=== PATIENT | male | born 1965 | race Caucasian/White ===

== ENCOUNTER 2018-04-02 15:52 | Inpatient (IN) | payer OTHER ==
[2018-04-02] VITALS (7 sets, daily range): BP systolic 110–150; BP diastolic 59–94; PULSE 64–146; RESP 17–32; TEMP 97.5–98.4; O2SAT 93–100
[~2018-04-02] VITALS: Ht 185.4 cm; Wt 139.6 kg
--- NOTE | 2018-04-02 16:26 | RADRPT ---
EXAM DATE: 04/02/2018 4:18 PM EDT AGE/SEX: 52 years / Male INDICATIONS: Short of breath, sent by the dr. CLINICAL DATA: This is the patient's initial encounter. Patient reports that signs and symptoms have been present for 1 day and indicates a pain score of 0/10. MEDICAL/SURGICAL HISTORY: . atrial fibrillation None. COMPARISON: No prior exams available for comparison. FINDINGS: Frontal and lateral views of the chest demonstrate a normal-sized cardiac silhouette. There are bibas ilar interstitial opacities with likely consolidation at one of the posterior lower lobes. No pleural effusion or pneumothorax is identified. The bones and soft tissues demonstrate no acute finding. CONCLUSION: Abnormal interstitial and airspace opacities bilaterally primarily in the mid and lower lung zones. A lthough nonspecific, the pattern is suggestive of pulmonary edema. Electronically signed by: Ruiz De Paz MD 04/02/2018 4:24 PM EDT
[2018-04-02] MEDS ORDERED: METOPROLOL TARTRATE 50 MG TAB PO ONE (16:45)
[2018-04-02] MEDS ORDERED: METOPROLOL TARTRATE 5 MG/5 ML VIAL IV PUSH ONE ×2 (16:45→19:30)
[2018-04-02 16:55] LABS: AUTOMATED NEUTROPHIL # 4.3 TH/MM3 (1.8-7.7); BASOPHIL # 0.1 TH/MM3 (0-0.2); BASOPHIL % 0.8 % (0.0-2.0); EOSINOPHIL # 0.2 TH/MM3 (0-0.4); EOSINOPHIL % 2.4 % (0.0-4.0); HEMATOCRIT 52.2 % (39.0-51.0); HEMOGLOBIN 17.2 GM/DL (13.0-17.0); LYMPH % 30.2 % (9.0-44.0); LYMPHOCYTE # 2.2 TH/MM3 (1.0-4.8); MEAN CELL VOLUME 88.1 FL (80.0-100.0); MEAN CORPUSCULAR HGB CONC 32.9 % (32.0-36.0); MEAN PLATELET VOLUME 11.2 FL (7.0-11.0); MONO % 8.7 % (0.0-8.0); MONOCYTE # 0.6 TH/MM3 (0-0.9); NEUT % 57.9 % (16.0-70.0); PLATELET COUNT 182 TH/MM3 (150-450); RED BLOOD COUNT 5.93 MIL/MM3 (4.50-5.90); RED CELL DISTRIBUTION WIDTH 13.7 % (11.6-17.2); WHITE BLOOD COUNT 7.4 TH/MM3 (4.0-11.0)
[2018-04-02 17:08] LABS: TROPONIN I 0.02 NG/ML (0.02-0.05)
[2018-04-02] MEDS ORDERED: FUROSEMIDE 40 MG/4 ML VIAL IV PUSH ONE (17:30)
--- NOTE | 2018-04-02 17:31 | RADRPT ---
EXAM DATE: 04/02/2018 5:28 PM EDT AGE/SEX: 52 years / Male INDICATIONS: Short of breath. CLINICAL DATA: This is the patient's initial encounter. Patient reports that signs and symptoms have been present for 1 day and indicates a pain score of 5/10. MEDICAL/SURGICAL HISTORY: None. None. COMPARISON: [facility] [place] & [place], 04/02/2018. . FINDINGS: There is mild haziness to the perivascular structures most likely pulmonary edema. Slight cardiomegaly seen. Focal consolidation is also suspected in right lower lung anteromedial. CONCLUSION: Slight CHF and mild focal consolidation right middle lobe is also suspected. There is no appreciable change. Electronically signed by: Mairsa Luciano MD 04/02/2018 5:30 PM EDT
[2018-04-02 17:33] LABS: INTERNATIONAL NORMALIZED RATIO 1.2 RATIO; PROTHROMBIN TIME - PATIENT 12.3 SEC (9.8-11.6)
[2018-04-02 17:38] LABS: ALT (GPT) 19 U/L (12-78)
[2018-04-02 17:39] LABS: ALBUMIN 3.5 GM/DL (3.4-5.0); AST (GOT) 18 U/L (15-37); BICARBONATE 19.5 MEQ/L (21.0-32.0); BLOOD UREA NITROGEN 15 MG/DL (7-18); CALCIUM 9.3 MG/DL (8.5-10.1); CHLORIDE 111 MEQ/L (98-107); CREATININE 1.29 MG/DL (0.60-1.30); GLOMERULAR FILTRATION RATE 59 ML/MIN (>89); GLUCOSE,RANDOM 76 MG/DL (74-106); MAGNESIUM 1.5 MG/DL (1.5-2.5); SODIUM (NA) 142 MEQ/L (136-145)
[2018-04-02 17:42] LABS: ALKALINE PHOSPHATASE 40 U/L (45-117); TOTAL BILIRUBIN ADULT 0.8 MG/DL (0.2-1.0); TOTAL PROTEIN 7.1 GM/DL (6.4-8.2); TROPONIN I 0.02 NG/ML (0.02-0.05)
--- NOTE | 2018-04-02 17:53 | PD ---
HPI Chief Complaint: Cardiac Complaint Time Seen by Provider: 16:33 Travel History International Travel<30 days: No Contact w/Intl Traveler<30days: No Traveled to known affect area: No History of Present Illness HPI Patient is a 52-year-old male presenting to the emergency department for evaluation of shortness of breath. He went to a new primary care doctor today and was told that he had atrial fibrillation, his rate was elevated he was sent to the emergency department. Patient states that he started feeling short of breath 2 weeks ago prior to moving to the area. He went to his primary doctor there and was given a prescription for albuterol inhaler. He has been using it fairly consistently since it was prescribed. Patient reports a history of paroxysmal atrial fibrillation. Patient is not on any blood thinners, he does take aspirin daily. He reports compliance with metoprolol, he took last dose this morning. Denies any chest pain, fever, chills, headache. Symptom onset was gradual, symptoms possibly exacerbated by the albuterol use. No alleviating factors. PFSH Past Medical History Atrial Fibrillation: Yes High Cholesterol: Yes Influenza Vaccination: Yes Past Surgical History Surgical History: No Previous Surgery Family History Family Breast Cancer: Yes (sister) Family Myocardial Infarction: Yes (father) Family Hypercholesterolemia: Yes Social History Alcohol Use: Yes (occasionally) Tobacco Use: No Substance Use: Yes (marijuana) Allergies-Medications (Allergen,Severity, Reaction): Coded Allergies: Penicillins (Verified Allergy, Intermediate, Rash, 04/02/18) Reported Meds & Prescriptions Reported Meds & Active Scripts Active Reported Naproxen 500 Mg Tab 500 Mg PO BIDPC Fish Oil + D3 (Fish Oil-Cholecalciferol) 1,200-1,000 Mg-Unit Cap 1 Cap PO DAILY Fenofibric Acid Dr (Choline Fenofibrate DR) 135 mg Capdr 135 Mg PO DAILY Atorvastatin (Atorvastatin Calcium) 40 Mg Tab 40 Mg PO DAILY Metoprolol Succinate ER 24 HR (Metoprolol Succinate) 50 Mg Tab 75 Mg PO DAILY Review of Systems Except as stated in HPI: all other systems reviewed are Neg HENT: No: Headaches, Lightheadedness Cardiovascular: Positive: Irregular Rhythm, Tachycardia, Dyspnea on exertion Respiratory: Positive: Shortness of Breath, Orthopnea Gastrointestinal: No: Nausea, Abdominal Pain Neurologic: No: Dizziness, Syncope Physical Exam Narrative GENERAL: Obese, well-developed, alert male. Presenting in no acute distress. SKIN: Warm and dry. HEAD: Atraumatic. Normocephalic. EYES: Pupils equal and round. No scleral icterus. No injection or drainage. ENT: No nasal bleeding or discharge. Mucous membranes pink and moist. NECK: Trachea midline. No JVD. CARDIOVASCULAR: Irregularly irregular, tachycardic. RESPIRATORY: No accessory muscle use. Expiratory wheezes throughout. GASTROINTESTINAL: Abdomen distended, firm. Hepatic and splenic margins not palpable. Nontender, positive bowel sounds. MUSCULOSKELETAL: Extremities without clubbing, cyanosis, or edema. No obvious deformities. NEUROLOGICAL: Awake and alert. No obvious cranial nerve deficits. Motor grossly within normal limits. Five out of 5 muscle strength in the arms and legs. Normal speech. PSYCHIATRIC: Appropriate mood and affect; insight and judgment normal. Data Data Last Documented VS Vital Signs Date Time Temp Pulse Resp B/P (MAP) Pulse Ox O2 Delivery O2 Flow Rate FiO2 04/02/18 19:58 120 20 110/68 (82) 95 Nasal Cannula 2.00 04/02/18 17:31 97.5 50 Orders Orders Electrocardiogram (04/02/18 15:56) Complete Blood Count With Diff (04/02/18 15:56) Ckmb (Isoenzyme) Profile (04/02/18 15:56) Troponin I (04/02/18 15:56) Chest, Pa & Lat (04/02/18 15:56) Comprehensive Metabolic Panel (04/02/18 16:34) B-Type Natriuretic Peptide (04/02/18 16:34) Act Partial Throm Time (Ptt) (04/02/18 16:34) Prothrombin Time / Inr (Pt) (04/02/18 16:34) Magnesium (Mg) (04/02/18 16:34) Ckmb (Isoenzyme) Profile (04/02/18 16:34) Troponin I (04/02/18 16:34) Iv Access Insert/Monitor (04/02/18 16:34) Ecg Monitoring (04/02/18 16:34) Oximetry (04/02/18 16:34) Oxygen Administration (04/02/18 16:34) Chest, Single Ap (04/02/18 16:34) Metoprolol Tartrate Inj (Lopressor Inj) (04/02/18 16:45) Metoprolol Tartrate (Lopressor) (04/02/18 16:45) CKMB (04/02/18 16:30) CKMB% (04/02/18 16:30) Furosemide Inj (Lasix Inj) (04/02/18 17:30) Ct Pulmonary Angiogram (04/02/18 ) Iohexol 350 Inj (Omnipaque 350 Inj) (04/02/18 18:33) Metoprolol Tartrate Inj (Lopressor Inj) (04/02/18 19:30) Admit Order (Ed Use Only) (04/02/18 19:46) Labs Laboratory Tests Test 04/02/18 16:30 04/02/18 16:45 White Blood Count 7.4 TH/MM3 Red Blood Count 5.93 MIL/MM3 Hemoglobin 17.2 GM/DL Hematocrit 52.2 % Mean Corpuscular Volume 88.1 FL Mean Corpuscular Hemoglobin 29.0 PG Mean Corpuscular Hemoglobin Concent 32.9 % Red Cell Distribution Width 13.7 % Platelet Count 182 TH/MM3 Mean Platelet Volume 11.2 FL Neutrophils (%) (Auto) 57.9 % Lymphocytes (%) (Auto) 30.2 % Monocytes (%) (Auto) 8.7 % Eosinophils (%) (Auto) 2.4 % Basophils (%) (Auto) 0.8 % Neutrophils # (Auto) 4.3 TH/MM3 Lymphocytes # (Auto) 2.2 TH/MM3 Monocytes # (Auto) 0.6 TH/MM3 Eosinophils # (Auto) 0.2 TH/MM3 Basophils # (Auto) 0.1 TH/MM3 CBC Comment AUTO DIFF Differential Comment AUTO DIFF CONFIRMED Platelet Estimate NORMAL Platelet Morphology Comment NORMAL Total Creatine Kinase 111 U/L 122 U/L Creatine Kinase MB 2.4 NG/ML Troponin I 0.02 NG/ML 0.02 NG/ML Prothrombin Time 12.3 SEC Prothromb Time International Ratio 1.2 RATIO Activated Partial Thromboplast Time 26.5 SEC Blood Urea Nitrogen 15 MG/DL Creatinine 1.29 MG/DL Random Glucose 76 MG/DL Total Protein 7.1 GM/DL Albumin 3.5 GM/DL Calcium Level 9.3 MG/DL Magnesium Level 1.5 MG/DL Alkaline Phosphatase 40 U/L Aspartate Amino Transf (AST/SGOT) 18 U/L Alanine Aminotransferase (ALT/SGPT) 19 U/L Total Bilirubin 0.8 MG/DL Sodium Level 142 MEQ/L Potassium Level 4.1 MEQ/L Chloride Level 111 MEQ/L Carbon Dioxide Level 19.5 MEQ/L Anion Gap 12 MEQ/L Estimat Glomerular Filtration Rate 59 ML/MIN B-Type Natriuretic Peptide 389 PG/ML MDM Medical Decision Making Medical Screen Exam Complete: Yes Emergency Medical Condition: Yes Interpretation(s) Vital Signs Date Time Temp Pulse Resp B/P (MAP) Pulse Ox O2 Delivery O2 Flow Rate FiO2 04/02/18 17:31 97.5 64 17 117/59 (78) 100 Ventilator 50 04/02/18 16:39 146 32 93 04/02/18 16:21 97.9 128 22 129/94 (106) 94 Room Air Differential Diagnosis Cardiac arrhythmia versus CHF versus metabolic abnormality versus other Narrative Course Patient is a 52-year-old male presenting to emerge department for evaluation of shortness of breath secondary to A. fib with RVR. Patient's initial rate was in the 130s. He was slightly tachypneic and had audible wheezing on exam. IV access established, patient placed on telemetry monitoring continuous pulse oximetry. Patient was administered 2.5 mg of Lopressor IV with an additional 50 mg oral dose. Initial EKG was performed in triage showed A. fib with RVR with a rate of 128. This was reviewed by an attending physician. Chest x-ray shows abnormal interstitial and airspace opacities bilaterally primarily in the mid and lower lung zones. Although nonspecific the pattern is suggestive of pulmonary edema. It also showed mild focal consolidation in the right middle lobe. CBC is unremarkable BNP is 389 Cardiac enzymes are negative 1 set Chemistry is unremarkable Patient was given 40 mg of Lasix IV 1 dose Last set of vital signs his heart rate had trended down from 146->64, his blood pressure remained stable. Discussed findings with my attending physician. Patient will be admitted CHF, A. fib with RVR, pneumonia. Patient was given additional dose of Lopressor 2.5 mg IV as his heart rate trended up. Dr. Alexander accepted admit, admit orders placed. Diagnosis Primary Impression: CHF (congestive heart failure) Qualified Codes: I50.9 - Heart failure, unspecified Additional Impressions: Atrial fibrillation with RVR Pneumonia Qualified Codes: J18.9 - Pneumonia, unspecified organism Admitting Information Admitting Physician Requests: Admit Condition: Stable Estefany Thomason [facility] Apr 02, 2018 17:53
[2018-04-02] MEDS ORDERED: METO1TAB9 PO (17:59)
[2018-04-02] MEDS ORDERED: NAPR500T2 PO (17:59)
[2018-04-02] MEDS ORDERED: ATOR40TA16 PO (17:59)
[2018-04-02] MEDS ORDERED: FISHCAP4 PO (17:59)
[2018-04-02] MEDS ORDERED: CHOL1CAP2 PO (17:59)
[2018-04-02] MEDS ORDERED: IOHEXOL 350 MG/ML 10 ML VIAL (for RAD DIAG) IVCONTRAST ONE (18:33)
--- NOTE | 2018-04-02 18:49 | RADRPT ---
EXAM DATE: 04/02/2018 6:38 PM EDT AGE/SEX: 52 years / Male INDICATIONS: Chest pain. CLINICAL DATA: This is the patient's initial encounter. Patient reports that signs and symptoms have been present for 1 day and indicates a pain score of 5/10. MEDICAL/SURGICAL HISTORY: . Afib. RVR. . RADIATION DOSE: 23.41 CTDI (mGy) COMPARISON: No prior exams available for comparison. TECHNIQUE: Volumetric scanning was performed using a multi-row detector CT scanner during bolus infu dayana of 75 ml Omnipaque 350 (iohexol) nonionic water-soluble contrast as a single exam dose. The anabelle a was post processed with a variety of visualization algorithms including full volume maximum intensi ty projection and sliding thin slab reformation. Using automated exposure control and adjustment of the mA and/or kV according to patient size, radiation dose was kept as low as reasonably achievable t o obtain optimal diagnostic quality images. FINDINGS: There is respiratory motion artifact. Pulmonary Arteries: Evaluation for PE is significantly degraded by the respiratory motion artifact. No definite PE is identified in the lobar and some of the segmental branches. More distal PE cannot b e confidently excluded on this examination. Lung: There is severe respiratory motion artifact limiting detailed evaluation of the lung parenchym a. There is likely mild groundglass opacity bilaterally consolidation and atelectasis in both lower l obes. Effusion: There are small to moderate-sized bilateral pleural effusions. Mediastinum: Heart and great vessels demonstrate no acute finding. There is coronary artery calcific ation. No lymphadenopathy is seen. Other: No axillary lymphadenopathy is present. There are mild degenerative changes of the thoracic s pine. Contrast refluxes into the hepatic veins and IVC. CONCLUSION: 1. Examination is significantly degraded by respiratory motion artifact. No PE is identified through the lobar and some of the segmental level pulmonary arteries. More distal PE cannot be confidently e xcluded based on this examination. 2. There are interstitial opacities and groundglass opacity bilaterally, greater in the lower lung z ones in a pattern suggesting pulmonary edema. Small to moderate-sized bilateral pleural effusions are present. Electronically signed by: Ruiz De Paz MD 04/02/2018 6:47 PM EDT
[2018-04-02] MEDS ORDERED: LEVOFLOXACIN 750 MG PREMIX INJ 150 ML IV ONE (20:15)
[2018-04-02] MEDS ORDERED: SODIUM CHLORIDE 0.9% FLUSH 10 ML FLUSH IV FLUSH PRN (20:45)
[2018-04-02] MEDS ORDERED: METOPROLOL TARTRATE 25 MG TAB PO SCH (21:00)
--- NOTE | 2018-04-02 21:15 | HHI.HP ---
HPI Service [facility] Primary Care Physician Elisa Toscano MD Admission Diagnosis AFIB W/ RVR, CHF, PNA Diagnoses: Travel History International Travel<30 Days: No Contact w/Intl Traveler <30 Da: No Traveled to Known Affected Are: No History of Present Illness 52-year-old male with a past medical history significant for paroxysmal atrial fibrillation (patient previously refused anticoagulation) and hyperlipidemia presents the emergency department for evaluation of shortness of breath 1 week and heart palpitations. The patient denies any chest pain. He reports that he was seen by his primary care physician in [place] approximately 1 week ago who gave him an albuterol inhaler and recommended steroids however the patient refused steroids. He was not given any antibiotics at this time. He states that since he has been using the albuterol he feels as though his shortness of breath and palpitations are worsening. The patient denies any abdominal pain. No nausea/vomiting/diarrhea. No cough. No fevers/chills. No lateralizing signs/symptoms. Review of Systems Except as stated in HPI: all other systems reviewed are Neg Past Family Social History Past Medical History Paroxysmal atrial fibrillation (patient refused anticoagulation in the past) requiring cardioversion Hyperlipidemia Past Surgical History None Reported Medications Reported Meds & Active Scripts Active Reported Naproxen 500 Mg Tab 500 Mg PO BIDPC Fish Oil + D3 (Fish Oil-Cholecalciferol) 1,200-1,000 Mg-Unit Cap 1 Cap PO DAILY Fenofibric Acid Dr (Choline Fenofibrate DR) 135 mg Capdr 135 Mg PO DAILY Atorvastatin (Atorvastatin Calcium) 40 Mg Tab 40 Mg PO DAILY Metoprolol Succinate ER 24 HR (Metoprolol Succinate) 50 Mg Tab 75 Mg PO DAILY Allergies: Coded Allergies: Penicillins (Verified Allergy, Intermediate, Rash, 04/02/18) Family History Father with CAD Social History Quit tobacco 4 days ago. Occasional alcohol. Positive marijuana. Denies all other illicit drugs. Physical Exam Vital Signs Vital Signs Date Time Temp Pulse Resp B/P (MAP) Pulse Ox O2 Delivery O2 Flow Rate FiO2 04/02/18 20:30 93 18 129/84 (99) 94 Nasal Cannula 2.00 04/02/18 19:58 120 20 110/68 (82) 95 Nasal Cannula 2.00 04/02/18 19:12 120 20 114/83 (93) 93 Room Air 04/02/18 17:31 97.5 64 17 117/59 (78) 100 Ventilator 50 04/02/18 16:39 146 32 93 04/02/18 16:21 97.9 128 22 129/94 (106) 94 Room Air Physical Exam GENERAL: Obese, male sitting up in bed SKIN: No rashes, ecchymoses or lesions. Cool and dry. HEAD: Atraumatic. Normocephalic. No temporal or scalp tenderness. EYES: Pupils equal round and reactive. Extraocular motions intact. No scleral icterus. No injection or drainage. ENT: Nose without bleeding, purulent drainage or septal hematoma. Throat without erythema, tonsillar hypertrophy or exudate. Uvula midline. Airway patent. NECK: Trachea midline. No JVD or lymphadenopathy. Supple, nontender, no meningeal signs. CARDIOVASCULAR: Tachycardic. Irregularly irregular rhythm without murmurs, gallops, or rubs. RESPIRATORY: Clear to auscultation. Breath sounds equal bilaterally. No wheezes , rales, or rhonchi. GASTROINTESTINAL: Abdomen soft, non-tender, nondistended. No hepato-splenomegaly , or palpable masses. No guarding. MUSCULOSKELETAL: Extremities without clubbing, cyanosis, or edema. No joint tenderness, effusion, or edema noted. No calf tenderness. NEUROLOGICAL: Awake and alert. Cranial nerves II through XII intact. Motor and sensory grossly within normal limits. Normal speech. Laboratory Laboratory Tests Test 04/02/18 16:30 04/02/18 16:45 White Blood Count 7.4 Red Blood Count 5.93 Hemoglobin 17.2 Hematocrit 52.2 Mean Corpuscular Volume 88.1 Mean Corpuscular Hemoglobin 29.0 Mean Corpuscular Hemoglobin Concent 32.9 Red Cell Distribution Width 13.7 Platelet Count 182 Mean Platelet Volume 11.2 Neutrophils (%) (Auto) 57.9 Lymphocytes (%) (Auto) 30.2 Monocytes (%) (Auto) 8.7 Eosinophils (%) (Auto) 2.4 Basophils (%) (Auto) 0.8 Neutrophils # (Auto) 4.3 Lymphocytes # (Auto) 2.2 Monocytes # (Auto) 0.6 Eosinophils # (Auto) 0.2 Basophils # (Auto) 0.1 CBC Comment AUTO DIFF Differential Comment AUTO DIFF CONFIRMED Platelet Estimate NORMAL Platelet Morphology Comment NORMAL Total Creatine Kinase 111 122 Creatine Kinase MB 2.4 Troponin I 0.02 0.02 Prothrombin Time 12.3 Prothromb Time International Ratio 1.2 Activated Partial Thromboplast Time 26.5 Blood Urea Nitrogen 15 Creatinine 1.29 Random Glucose 76 Total Protein 7.1 Albumin 3.5 Calcium Level 9.3 Magnesium Level 1.5 Alkaline Phosphatase 40 Aspartate Amino Transf (AST/SGOT) 18 Alanine Aminotransferase (ALT/SGPT) 19 Total Bilirubin 0.8 Sodium Level 142 Potassium Level 4.1 Chloride Level 111 Carbon Dioxide Level 19.5 Anion Gap 12 Estimat Glomerular Filtration Rate 59 B-Type Natriuretic Peptide 389 Result Diagram: 04/02/18 1630 04/02/18 1645 Caprini VTE Risk Assessment Caprini VTE Risk Assessment: Mod/High Risk (score >= 2) Caprini Risk Assessment Model Point Value = 1 Point Value = 2 Point Value = 3 Point Value = 5 Age 41-60 Minor surgery BMI > 25 kg/m2 Swollen legs Varicose veins or History of unexplained or recurrent spontaneous Oral contraceptives or hormone replacement Sepsis (< 1 month) Serious lung disease, including pneumonia (< 1 month) Abnormal pulmonary function Acute myocardial infarction Congestive heart failure (< 1 month) History of inflammatory bowel disease Medical patient at bed rest Age 61-74 Arthroscopic surgery Major open surgery (> 45 min) Laparoscopic surgery (> 45 min) Malignancy Confined to bed (> 72 hours) Immobilizing plaster cast Central venous access Age >= 75 History of VTE Family history of VTE Factor V Leiden Prothrombin [id number] Lupus anticoagulant Anticardiolipin antibodies Elevated serum homocysteine Heparin-induced thrombocytopenia Other congenital or acquired thrombophilia Stroke (< 1 month) Elective arthroplasty Hip, pelvis, or leg fracture Acute spinal cord injury (< 1 month) Prophylaxis Regimen Total Risk Factor Score Risk Level Prophylaxis Regimen 0-1 Low Early ambulation 2 Moderate Order ONE of the following: *Sequential Compression Device (SCD) *Heparin 5000 units SQ BID 3-4 Higher Order ONE of the following medications: *Heparin 5000 units SQ TID *Enoxaparin/Lovenox 40 mg SQ daily (WT < 150 kg, CrCl > 30 mL/min) *Enoxaparin/Lovenox 30 mg SQ daily (WT < 150 kg, CrCl > 10-29 mL/min) *Enoxaparin/Lovenox 30 mg SQ BID (WT < 150 kg, CrCl > 30 mL/min) AND/OR *Sequential Compression Device (SCD) 5 or more Highest Order ONE of the following medications: *Heparin 5000 units SQ TID (Preferred with Epidurals) *Enoxaparin/Lovenox 40 mg SQ daily (WT < 150 kg, CrCl > 30 mL/min) *Enoxaparin/Lovenox 30 mg SQ daily (WT < 150 kg, CrCl > 10-29 mL/min) *Enoxaparin/Lovenox 30 mg SQ BID (WT < 150 kg, CrCl > 30 mL/min) AND *Sequential Compression Device (SCD) Assessment and Plan Assessment and Plan Assessment/plan: 1. Atrial fibrillation with rapid ventricular response EKG significant for A. fib with RVR, no ST segment elevation or depression, personally reviewed Patient with history of paroxysmal atrial fibrillation, previously refused anticoagulation IV metoprolol Continue home p.o. metoprolol Start anticoagulation with Eliquis If rate is not controlled, will start amiodarone drip Patient will follow up with his primary care provider on Friday and establish with a punch finisher at that time 2. Community-acquired pneumonia Chest x-ray significant for mild focal consolidation in the right middle lobe, personally reviewed Rocephin/azithromycin 3. Hyperlipidemia Continue home statin FEN Heart healthy diet Electrolytes: Monitor and replete as needed Shelli Phillips MD Apr 02, 2018 21:15
[2018-04-02] MEDS: SODIUM CHLORIDE 0.9% FLUSH 10 ML FLUSH IV FLUSH SCH (23:09)
[2018-04-02] MEDS: APIXABAN 5 MG TABLET PO SCH (23:09)
[2018-04-02] MEDS: cefTRIAXone INJ 1,000 MG in SODIUM CHLORIDE 0.9% INJ 100 ML IV SCH (23:09)
[2018-04-02] MEDS: AZITHROMYCIN INJ 500 MG in SODIUM CHLOR 0.9% 250 ML INJ 250 ML IV SCH (23:57)
[2018-04-03] VITALS (9 sets, daily range): BP systolic 114–178; BP diastolic 85–97; PULSE 85–126; RESP 16–20; TEMP 97.4–98.5; O2SAT 91–100
[2018-04-03 04:19] LABS: HEMATOCRIT 52.8 % (39.0-51.0); HEMOGLOBIN 17.4 GM/DL (13.0-17.0); MEAN CORPUSCULAR HEMOGLOBIN 29.1 PG (27.0-34.0); MEAN PLATELET VOLUME 10.9 FL (7.0-11.0); PLATELET COUNT 195 TH/MM3 (150-450); RED CELL DISTRIBUTION WIDTH 13.6 % (11.6-17.2); WHITE BLOOD COUNT 8.7 TH/MM3 (4.0-11.0)
[2018-04-03 05:07] LABS: BICARBONATE 21.6 MEQ/L (21.0-32.0); CREATININE 1.55 MG/DL (0.60-1.30)
[2018-04-03] MEDS ORDERED: METOPROLOL SUCCINATE 25 MG EXTENDED RELEASE TAB PO SCH (09:00)
[2018-04-03] MEDS: APIXABAN 5 MG TABLET PO SCH ×2 (09:27→21:33)
[2018-04-03] MEDS: SODIUM CHLORIDE 0.9% FLUSH 10 ML FLUSH IV FLUSH SCH ×2 (09:28→21:33)
[2018-04-03] MEDS: ATORVASTATIN 40 MG TAB PO SCH (09:28)
--- NOTE | 2018-04-03 11:31 | HHI.PR ---
Subjective Remarks Follow-up dyspnea, atrial fibrillation. The patient still has rapid heart rate. Still short of breath. Has not been out of bed ambulating yet today. Objective Vitals Vital Signs Date Time Temp Pulse Resp B/P (MAP) Pulse Ox O2 Delivery O2 Flow Rate FiO2 04/03/18 11:12 97.5 115 20 141/91 (108) 93 04/03/18 09:30 94 04/03/18 07:43 97.8 85 16 114/89 (97) 91 04/03/18 04:33 98.5 126 17 137/85 (102) 93 04/03/18 04:00 104 04/03/18 01:01 100 40 04/02/18 21:26 98.4 114 17 150/81 (104) 96 04/02/18 21:15 04/02/18 20:30 93 18 129/84 (99) 94 Nasal Cannula 2.00 04/02/18 19:58 120 20 110/68 (82) 95 Nasal Cannula 2.00 04/02/18 19:12 120 20 114/83 (93) 93 Room Air 04/02/18 17:31 97.5 64 17 117/59 (78) 100 Ventilator 50 04/02/18 16:39 146 32 93 04/02/18 16:21 97.9 128 22 129/94 (106) 94 Room Air I/O 04/02/18 04/02/18 04/02/18 04/03/18 04/03/18 04/03/18 07:00 15:00 23:00 07:00 15:00 23:00 Intake Total 150 ml 1240 ml Output Total 825 ml Balance 150 ml 415 ml Intake Oral 1240 ml IV Total 150 ml Output Urine Total 825 ml # Voids 2 Result Diagram: 04/03/18 0332 04/03/18 0332 Imaging Last Impressions Chest X-Ray 04/02/18 1634 Signed Impressions: CONCLUSION: Slight CHF and mild focal consolidation right middle lobe is also s uspected. There is no appreciable change. CT Angiography 04/02/18 0000 Signed Impressions: CONCLUSION: 1. Examination is significantly degraded by respiratory motion artifact. No PE is identified through the lobar and some of the segmental level pulmonary marco eddy. More distal PE cannot be confidently excluded based on this examination. 2. There are interstitial opacities and groundglass opacity bilaterally, great er in the lower lung zones in a pattern suggesting pulmonary edema. Small to mo derate-sized bilateral pleural effusions are present. Objective Remarks General: No acute distress. Heart: Irregular rhythm with rapid rate. No murmur. Lungs: Crackles in both bases, left greater than right. Breathing is nonlabored. Abdomen: Soft, nontender, nondistended. Extremities: Trace bilateral lower extremity edema. Psych: Alert and oriented. Neuro: Normal speech. No focal deficits noted. Procedures None Urinary Catheter: No Vascular Central Line Catheter: No A/P Assessment and Plan 1. Atrial fibrillation with RVR: Heart rate around 100. Continue metoprolol. Anticoagulation with Eliquis. Consult cardiology. Check 2D echocardiogram. 2. Community-acquired pneumonia: New antibiotics. Supplemental oxygen as needed. 3. Hyperlipidemia: Continue statin. 4. ?CHF: Check echocardiogram. Patient has some lower extremity swelling and chest x-ray consistent with pulmonary edema. Received Lasix 1 dose in the ER. 5. Acute kidney injury: Secondary to diuresis. Monitor labs. Will need to use caution with IV fluids due to possible fluid overload, possible CHF. 6. DVT prophylaxis: Eliquis. Discharge Planning Pending further workup and further clinical improvement. Danis Lee MD Apr 03, 2018 11:31
[2018-04-03] MEDS ORDERED: METOPROLOL SUCCINATE 25 MG EXTENDED RELEASE TAB PO ONE (13:30)
--- NOTE | 2018-04-03 14:18 | MB ---
cc: Darrel Zimmerman DO DATE: 04/03/2018 REASON FOR CONSULTATION: Atrial fibrillation with rapid ventricular response, acute congestive heart failure. HISTORY OF PRESENT ILLNESS: Jabari Davis is a pleasant 52-year-old male who presented to [facility] due to shortness of breath. He states that for about the past week he has been short of breath and had heart palpitations. The palpitations seem to come and go. His shortness of breath is at any time that he is doing any type of activity or specifically when he is lying down flat. He has also had some mild chest pain, which he did not really admit to with the other physicians, but states that he gets a pressure and this appears to come on when he is lying down flat and short of breath. He saw his new primary care physician, Dr. Elisa Toscano, and was sent to the emergency room due to the atrial fibrillation and shortness of breath. In seeing him, he is doing somewhat better than when he was admitted. PAST MEDICAL HISTORY: He states that he had a previous episode of atrial fibrillation in 2013 when he was in [place] and at that time they cardioverted him and started him on an anticoagulant, but he stopped that due to mccoy. PAST MEDICAL HISTORY: 1. Paroxysmal atrial fibrillation with a CHADS-VASc score of probably 2 (congestive heart failure, does not carry a diagnosis of hypertension, but has had blood pressures as high as 150/80 here). 2. Hyperlipidemia. 3. Tobacco abuse. 4. Marijuana use. PAST SURGICAL HISTORY: Denies. ALLERGIES: PENICILLIN. MEDICATIONS: 1. Fenofibric acid 135 mg daily. 2. Lipitor 40 mg daily. 3. Fish oil 1 cap daily. 4. Toprol-XL 75 mg daily. 5. Naproxen 500 mg b.i.d. FAMILY HISTORY: Denies premature coronary artery disease or sudden cardiac within the family. SOCIAL HISTORY: The patient previously smoked but quit upon admission to the hospital. He occasionally drinks alcohol. He does smoke marijuana, but denies all other illicit drugs. REVIEW OF SYSTEMS: Fourteen systems were reviewed including osteopathic. Pertinent positives and negatives as above, otherwise negative. PHYSICAL EXAMINATION: VITAL SIGNS: Temperature 97.5, heart rate 115, blood pressure 141/91, respirations 20, pulse oximetry 93% on 2 liters. GENERAL: The patient appears well, in no acute distress, alert, awake and oriented x3. HEENT: Extraocular muscles intact. Mucous membranes moist. NECK: Supple. No JVD at 45 degrees. No carotid bruits heard bilaterally. Carotid upstroke is brisk in nature. CARDIOVASCULAR: Heart is irregularly irregular and tachycardic. Positive first and second heart sounds with no noted murmurs, gallops or rubs. LUNGS: Decreased breath sounds bilaterally, but no overt wheezes, rales or rhonchi. ABDOMEN: Soft, nontender, nondistended. No organomegaly noted. EXTREMITIES: Trace edema bilaterally. NEUROLOGIC: No focal deficits. SKIN: Warm, dry and intact. OSTEOPATHIC: No kyphoscoliosis, lordosis or paraspinal tender points. LABORATORY DATA: Hemoglobin 17.4, hematocrit 52.8, platelets 195. Potassium 4.5, BUN 20, creatinine 1.55. Troponin negative x2. BNP 389. TSH 2.46. ELECTROCARDIOGRAM (04/02/2018 16:02): Atrial fibrillation with rapid ventricular response, nonspecific ST-T wave changes. IMPRESSIONS: 1. Paroxysmal atrial fibrillation with rapid ventricular response (CHADS-VASc score equals 2). 2. New onset acute decompensated congestive heart failure, unknown whether systolic or diastolic in nature. 3. Obesity with a body mass index of 41.6. 4. Atypical chest pain. 5. Tobacco abuse. 6. Marijuana use. 7. Obstructive sleep apnea on continuous positive airway pressure. RECOMMENDATIONS: 1. Mr. Davis presented with atrial fibrillation with rapid ventricular response. He was previously on Toprol-XL and we will try to use beta blockers to further control this. Would attempt to avoid calcium channel blockers until we know his overall ejection fraction. 2. As far as his acute decompensated heart failure, it is not known whether this is systolic or diastolic at this time. We will check a 2-D echo to look at his overall left ventricular function, cardiac structure and possible valvulopathies. If it is systolic in nature, it may be due to ischemia versus tachyarrhythmia. If diastolic, more than likely his heart failure is due to his tachyarrhythmia. 3. Due to the chest pain, new onset heart failure as well as the atrial fibrillation, I discussed with him and I believe that he should undergo pharmacologic nuclear stress testing. We will plan on doing this over the next 2 days. 4. He should continue on his CPAP for his obstructive sleep apnea. 5. His has looked up with her insurance and Eliquis relatively affordable for them and so he is okay with being placed on this due to his CHADS-VASc score of 2. 6. We will also attempt to diurese him gently as he did have a bump in his kidney function today. 7. Overall, he should attempt to decrease his NSAID use as this can potentiate hypertension and overall not well tolerated in patients with heart failure. 8. I spoke to him for greater than 3 minutes about tobacco cessation. Thank you for allowing me to see Jabari Davis. If there are any questions, please do not hesitate to call. Darrel Zimmerman DO VGP/SB , 01:32 PM , 02:16 PM
--- NOTE | 2018-04-03 15:22 | EKG ---
Date Performed: 04/02/2018 Time Performed: 16:02:00 PTAGE: 52 years EKG: ATRIAL FIBRILLATION WITH RAPID VENTRICULAR RESPONSE NONSPECIFIC T-WAVE ABNORMALITY ABNORMAL RHYTHM ECG INTERPRETATION BASED ON A DEFAULT AGE OF 40 YEARS NO PREVIOUS TRACING DOCTOR: Fernando Winkler Interpretating Date/Time 04/03/2018 15:21:43
[2018-04-03] MEDS: cefTRIAXone INJ 1,000 MG in SODIUM CHLORIDE 0.9% INJ 100 ML IV SCH (21:33)
[2018-04-03] MEDS: AZITHROMYCIN INJ 500 MG in SODIUM CHLOR 0.9% 250 ML INJ 250 ML IV SCH (23:00)
[2018-04-04] VITALS (8 sets, daily range): BP systolic 114–139; BP diastolic 76–106; PULSE 86–131; RESP 18–20; TEMP 97.3–98; O2SAT 93–96
[2018-04-04] MEDS ORDERED: FUROSEMIDE 20 MG/2 ML VIAL IV PUSH SCH (09:00)
[2018-04-04] MEDS ORDERED: METOPROLOL SUCCINATE 50 MG EXTENDED RELEASE TAB PO SCH (09:00)
[2018-04-04] MEDS: ATORVASTATIN 40 MG TAB PO SCH (10:00)
[2018-04-04] MEDS: POTASSIUM CHLORIDE 10 MEQ CONTROLLED RELEASE TAB PO SCH (10:00)
[2018-04-04] MEDS: APIXABAN 5 MG TABLET PO SCH ×2 (10:01→21:59)
[2018-04-04] MEDS: SODIUM CHLORIDE 0.9% FLUSH 10 ML FLUSH IV FLUSH SCH ×2 (10:01→22:01)
--- NOTE | 2018-04-04 10:20 | HHI.PR ---
Subjective Remarks Follow-up A. fib with RVR/CHF of unknown type/obstructive sleep apnea April 04, 2018-patient seen and examined; patient currently n.p.o. pending nuclear stress test today. Complains of shortness of breath with mild chest pain with exertion. by the bedside. Objective Vitals Vital Signs Date Time Temp Pulse Resp B/P (MAP) Pulse Ox O2 Delivery O2 Flow Rate FiO2 04/04/18 08:00 97.6 98 18 134/76 (95) 93 04/04/18 04:00 98 04/04/18 04:00 97.8 86 20 139/86 (103) 95 04/04/18 00:00 118 04/03/18 22:30 Room Air 04/03/18 22:12 97.8 120 20 178/97 (124) 94 04/03/18 21:06 98.1 102 20 145/92 (109) 93 04/03/18 16:38 97.4 108 20 141/95 (110) 91 04/03/18 11:12 97.5 115 20 141/91 (108) 93 I/O 04/03/18 04/03/18 04/03/18 04/04/18 04/04/18 04/04/18 07:00 15:00 23:00 07:00 15:00 23:00 Intake Total 1240 ml 240 ml 490 ml Output Total 825 ml 300 ml Balance 415 ml -60 ml 490 ml Intake Oral 1240 ml 240 ml 240 ml IV Total 250 ml Output Urine Total 825 ml 300 ml # Voids 2 1 # Bowel Movements 1 Result Diagram: 04/03/18 0332 04/03/18 0332 Imaging Last Impressions Chest X-Ray 04/02/18 1634 Signed Impressions: CONCLUSION: Slight CHF and mild focal consolidation right middle lobe is also s uspected. There is no appreciable change. CT Angiography 04/02/18 0000 Signed Impressions: CONCLUSION: 1. Examination is significantly degraded by respiratory motion artifact. No PE is identified through the lobar and some of the segmental level pulmonary marco eddy. More distal PE cannot be confidently excluded based on this examination. 2. There are interstitial opacities and groundglass opacity bilaterally, great er in the lower lung zones in a pattern suggesting pulmonary edema. Small to mo derate-sized bilateral pleural effusions are present. Objective Remarks GENERAL: NAD SKIN: Warm and dry. HEAD: Normocephalic. EYES: No scleral icterus. No injection or drainage. NECK: Supple, trachea midline. No JVD or lymphadenopathy. CARDIOVASCULAR: Irregular regular rate and rhythm without murmurs, gallops, or rubs. RESPIRATORY: Breath sounds equal bilaterally. No accessory muscle use. GASTROINTESTINAL: Abdomen soft, non-tender, nondistended. MUSCULOSKELETAL: No cyanosis, or edema. BACK: Nontender without obvious deformity. No CVA tenderness. Procedures None A/P Problem List: (1) Atrial fibrillation with RVR ICD Code: I48.91 - Unspecified atrial fibrillation Status: Acute Assessment and Plan 52-year-old man with 1. Atrial fibrillation with RVR: Appreciate input from cardiology pending nuclear stress test today April 04, 2018 continue metoprolol. Anticoagulation with Eliquis 2D echocardiogram pending. 2. Community-acquired pneumonia Currently on azithromycin and Rocephin supplemental oxygen as needed. 3. Hyperlipidemia Continue statin. 4. ?CHF 2D echocardiogram pending. Continue with Lasix Plan for nuclear stress test today April 04, 2018 5. Acute kidney injury: Secondary to diuresis. Monitor BUN and creatinine, and avoid all nephrotoxic drug 6. Obstructive sleep apnea Continue with BiPAP at night Tobacco cessation strongly advised 7. DVT prophylaxis: Eliquis. Maurizio Hernández MD Apr 04, 2018 10:20
[2018-04-04] MEDS ORDERED: ACETAMINOPHEN 325 MG TAB PO PRN (10:30)
[2018-04-04] MEDS ORDERED: DOCUSATE SODIUM 50 MG/SENNA 8.6 MG TAB PO PRN (10:30)
[2018-04-04] MEDS ORDERED: ONDANSETRON ODT 4 MG TAB PO PRN (10:45)
[2018-04-04] MEDS ORDERED: REGADENOSON INJ 0.4 MG/5 ML SYR ONE (13:01)
[2018-04-04 16:16] LABS: BICARBONATE 23.8 MEQ/L (21.0-32.0); CALCIUM 9.1 MG/DL (8.5-10.1); CREATININE 1.43 MG/DL (0.60-1.30)
[2018-04-04] MEDS ORDERED: FUROSEMIDE 20 MG/2 ML VIAL IV PUSH ONE (17:00)
--- NOTE | 2018-04-04 17:04 | PD.CARD.PN ---
Subjective Subjective Remarks No events overnight SOB with walking, some chest pressure when laying flat Heart rates 100-115 Objective Medications Current Medications Medications (Trade) Dose Ordered Sig/Nichelle Route Start Time Stop Time Status Last Admin (NS Flush) 2 ml UNSCH PRN IV FLUSH 04/02/18 20:45 (NS Flush) 2 ml BID IV FLUSH 04/02/18 21:00 04/04/18 10:01 (Eliquis) 5 mg BID PO 04/02/18 21:00 04/04/18 10:01 (Lipitor) 40 mg DAILY PO 04/03/18 09:00 04/04/18 10:00 Azithromycin 500 mg/Sodium Chloride 250 ml @ 250 mls/hr Q24H IV 04/02/18 23:00 04/03/18 23:00 Ceftriaxone Sodium 1000 mg/ Sodium Chloride 100 ml @ 200 mls/hr Q24H IV 04/02/18 22:00 04/03/18 21:33 (Lasix Inj) 20 mg DAILY IV PUSH 04/04/18 09:00 (KCl) 10 meq DAILY PO 04/04/18 09:00 04/04/18 10:00 (Toprol Xl) 100 mg DAILY PO 04/04/18 09:00 04/04/18 10:01 (Tylenol) 650 mg Q4H PRN PO 04/04/18 10:30 (Zofran Odt) 4 mg Q6H PRN PO 04/04/18 10:45 (Mimi-Colace) 1 tab BID PRN PO 04/04/18 10:30 (Restoril) 15 mg HS PRN PO 04/04/18 10:30 Vital Signs / I&O Vital Signs Date Time Temp Pulse Resp B/P (MAP) Pulse Ox O2 Delivery O2 Flow Rate FiO2 04/04/18 16:00 98.0 110 18 130/98 (109) 96 04/04/18 12:00 97.5 105 18 133/106 (115) 93 04/04/18 08:00 97.6 98 18 134/76 (95) 93 04/04/18 08:00 Room Air 2.00 40 04/04/18 04:00 98 04/04/18 04:00 97.8 86 20 139/86 (103) 95 04/04/18 00:00 118 04/03/18 22:30 Room Air 04/03/18 22:12 97.8 120 20 178/97 (124) 94 04/03/18 21:06 98.1 102 20 145/92 (109) 93 I/O 04/03/18 04/03/18 04/03/18 04/04/18 04/04/18 04/04/18 07:00 15:00 23:00 07:00 15:00 23:00 Intake Total 1240 ml 240 ml 490 ml Output Total 825 ml 300 ml Balance 415 ml -60 ml 490 ml Intake Oral 1240 ml 240 ml 240 ml IV Total 250 ml Output Urine Total 825 ml 300 ml # Voids 2 1 # Bowel Movements 1 Physical Exam GENERAL: NAD, AAOx3 SKIN: Warm and dry. HEAD: Atraumatic. Normocephalic. EYES: Pupils equal and round. No scleral icterus. No injection or drainage. ENT: No nasal bleeding or discharge. Mucous membranes pink and moist. NECK: Trachea midline. No JVD. CARDIOVASCULAR: Irregularly irregular RESPIRATORY: No accessory muscle use. Decreased breath sounds bilaterally GASTROINTESTINAL: Abdomen soft, non-tender, nondistended. Hepatic and splenic margins not palpable. MUSCULOSKELETAL: Extremities without clubbing, cyanosis. 1+ pitting edema bilaterally. No obvious deformities. NEUROLOGICAL: Awake and alert. No obvious cranial nerve deficits. Motor grossly within normal limits. Five out of 5 muscle strength in the arms and legs. Normal speech. PSYCHIATRIC: Appropriate mood and affect; insight and judgment normal. Laboratory Laboratory Tests Test 04/04/18 14:55 Blood Urea Nitrogen 20 MG/DL Creatinine 1.43 MG/DL Random Glucose 92 MG/DL Calcium Level 9.1 MG/DL Sodium Level 142 MEQ/L Potassium Level 4.1 MEQ/L Chloride Level 107 MEQ/L Carbon Dioxide Level 23.8 MEQ/L Anion Gap 11 MEQ/L Estimat Glomerular Filtration Rate 52 ML/MIN Assessment and Plan Problem List: (1) Atrial fibrillation with RVR ICD Codes: I48.91 - Unspecified atrial fibrillation Status: Acute (2) CHF (congestive heart failure) ICD Codes: I50.9 - Heart failure, unspecified Status: Acute (3) Pneumonia ICD Codes: J18.9 - Pneumonia, unspecified organism Status: Acute Assessment and Plan 1) Afib with RVR Heart rates still elevated Change Toprol XL to Lopressor for better titration of meds CHADSVASC = 2, Eliquis 5mg BID 2) Acute decompensated failure Needs further diuresis, increase Lasix to 40mg IV 2D echo pending 3) Chest pain Most likely due to acute heart failure with elevate LVEDP Nuclear stress test day one today, results tomorrow 4) HIGINIO on CPAP 5) Tobacco abuse Plans on quitting 6) Decrease NSAID use Problem Qualifiers (1) CHF (congestive heart failure): Qualified Codes: I50.9 - Heart failure, unspecified (2) Pneumonia: Qualified Codes: J18.9 - Pneumonia, unspecified organism Darrel Zimmerman DO Apr 04, 2018 17:04
[2018-04-04] MEDS: METOPROLOL TARTRATE 50 MG TAB PO SCH ×2 (17:53→22:00)
[2018-04-04] MEDS: guaiFENesin E.R. 600 MG TAB PO SCH (21:59)
[2018-04-04] MEDS: cefTRIAXone INJ 1,000 MG in SODIUM CHLORIDE 0.9% INJ 100 ML IV SCH (22:01)
[2018-04-04] MEDS: AZITHROMYCIN INJ 500 MG in SODIUM CHLOR 0.9% 250 ML INJ 250 ML IV SCH (23:00)
[2018-04-05] VITALS (9 sets, daily range): BP systolic 101–128; BP diastolic 63–97; PULSE 82–119; RESP 17–20; TEMP 97.1–97.8; O2SAT 93–97
--- NOTE | 2018-04-05 00:32 | HHI.PR ---
Addendum to Inpatient Note Addendum Reason: Additional Documentation Additional Information Patient was getting sob with the azithromycin infusion, 2 nights in a row. Changed patient to Levaquin IV for community acquired pneumonia. Celena Nava Apr 05, 2018 00:32
[2018-04-05] MEDS: TEMAZEPAM 15 MG CAP PO PRN ×2 (00:36→22:44)
[2018-04-05 05:06] LABS: BICARBONATE 23.7 MEQ/L (21.0-32.0); CALCIUM 8.9 MG/DL (8.5-10.1); CREATININE 1.54 MG/DL (0.60-1.30)
[2018-04-05] MEDS: METOPROLOL TARTRATE 50 MG TAB PO SCH ×3 (05:51→22:44)
[2018-04-05] MEDS: guaiFENesin E.R. 600 MG TAB PO SCH ×2 (08:54→21:20)
[2018-04-05] MEDS: POTASSIUM CHLORIDE 10 MEQ CONTROLLED RELEASE TAB PO SCH (08:55)
[2018-04-05] MEDS: APIXABAN 5 MG TABLET PO SCH (08:55)
[2018-04-05] MEDS: ATORVASTATIN 40 MG TAB PO SCH (08:55)
[2018-04-05] MEDS: ASPIRIN 81 MG CHEW TAB CHEW SCH (08:55)
[2018-04-05] MEDS: SODIUM CHLORIDE 0.9% FLUSH 10 ML FLUSH IV FLUSH SCH ×2 (08:55→21:20)
--- NOTE | 2018-04-05 10:11 | HHI.PR ---
Subjective Remarks Follow-up A. nida with RVR/CHF of unknown type/obstructive sleep apnea April 04, 2018-patient seen and examined; patient currently n.p.o. pending nuclear stress test today. Complains of shortness of breath with mild chest pain with exertion. by the bedside. April 05, 2018-patient seen and examined; still complains of chest tightness; plan for the second part of nuclear stress test today Objective Vitals Vital Signs Date Time Temp Pulse Resp B/P (MAP) Pulse Ox O2 Delivery O2 Flow Rate FiO2 04/05/18 08:00 Room Air 04/05/18 08:00 97.3 98 20 121/92 (102) 96 04/05/18 04:00 97.1 82 20 117/97 (104) 94 04/05/18 04:00 96 04/05/18 00:00 119 04/05/18 00:00 97.2 110 20 101/87 (92) 94 04/04/18 20:30 Room Air 04/04/18 20:00 97.3 112 20 114/99 (104) 94 04/04/18 20:00 113 04/04/18 16:04 115 04/04/18 16:00 98.0 110 18 130/98 (109) 96 04/04/18 12:00 97.5 105 18 133/106 (115) 93 04/04/18 11:52 131 I/O 04/04/18 04/04/18 04/04/18 04/05/18 04/05/18 04/05/18 07:00 15:00 23:00 07:00 15:00 23:00 Intake Total 490 ml 240 ml 225 ml Output Total 400 ml 1000 ml Balance 490 ml -160 ml -775 ml Intake Oral 240 ml 240 ml IV Total 250 ml 225 ml Output Urine Total 400 ml 1000 ml # Voids 1 # Bowel Movements 1 2 Result Diagram: 04/03/18 0332 04/05/18 0415 Imaging Last Impressions Chest X-Ray 04/02/18 1634 Signed Impressions: CONCLUSION: Slight CHF and mild focal consolidation right middle lobe is also s uspected. There is no appreciable change. CT Angiography 04/02/18 0000 Signed Impressions: CONCLUSION: 1. Examination is significantly degraded by respiratory motion artifact. No PE is identified through the lobar and some of the segmental level pulmonary marco eddy. More distal PE cannot be confidently excluded based on this examination. 2. There are interstitial opacities and groundglass opacity bilaterally, great er in the lower lung zones in a pattern suggesting pulmonary edema. Small to mo derate-sized bilateral pleural effusions are present. Objective Remarks GENERAL: NAD SKIN: Warm and dry. HEAD: Normocephalic. EYES: No scleral icterus. No injection or drainage. NECK: Supple, trachea midline. No JVD or lymphadenopathy. CARDIOVASCULAR: Irregular regular rate and rhythm without murmurs, gallops, or rubs. RESPIRATORY: Breath sounds equal bilaterally. No accessory muscle use. GASTROINTESTINAL: Abdomen soft, non-tender, nondistended. MUSCULOSKELETAL: No cyanosis, or edema. BACK: Nontender without obvious deformity. No CVA tenderness. Procedures None A/P Problem List: (1) Atrial fibrillation with RVR ICD Code: I48.91 - Unspecified atrial fibrillation Status: Acute Assessment and Plan 52-year-old man with 1. Atrial fibrillation with RVR: Appreciate input from cardiology Awaiting for second prior nuclear stress test today April 05, 2018 continue metoprolol. Anticoagulation with Eliquis 2D echocardiogram pending. 2. Community-acquired pneumonia Currently on Levaquin supplemental oxygen as needed. 3. Hyperlipidemia Continue statin. 4. ?CHF 2D echocardiogram pending. Continue with Lasix Plan for second part nuclear stress test today 5. Acute kidney injury: Secondary to diuresis. Monitor BUN and creatinine, and avoid all nephrotoxic drug 6. Obstructive sleep apnea Continue with BiPAP at night Tobacco cessation strongly advised 7. DVT prophylaxis: Eliquis. Maurizio Hernández MD Apr 05, 2018 10:11
--- NOTE | 2018-04-05 10:59 | RADRPT ---
EXAM DATE: 04/05/2018 10:38 AM EDT AGE/SEX: 52 years / Male INDICATIONS:Atrial Fibrillation. Congestive heart failure Mid chest pain with shortness of breath for one week. CLINICAL DATA: This is the patient's initial encounter. Patient reports that signs and symptoms have been present for 1 week and indicates a pain score of 5/10. MEDICAL/SURGICAL HISTORY: Hypertension. Non-responsive. COMPARISON: No prior exams available for comparison. No external comparison. DOSE: 30.2 mCi Tc 99m Myoview at stress 30.1 mCi [id number] at rest 0.4 mg Lexiscan STRESS SYMPTOMS: Shortness of breath. EJECTION FRACTION: 32 % TECHNIQUE: The patient underwent pharmacologic stress with infusion of prescribed dose. Continuous ECG tracing was monitored during stress. Gated SPECT imaging was performed after stress and conventi onal SPECT imaging was performed at rest. The examination was performed on a SPECT/CT scanner, both attenuation and non-corrected datasets were reviewed. FINDINGS: Distribution: The maximum perfused segment at stress is in the septal wall. Perfusion Study: Small fixed anterior and apical defects. No reversible perfusion defects. Gated Study: EF of 32% with global hypokinesis. The ejection fraction is calculated at 32%. RISK CATEGORY: High (>3% Annual Morality Rate) CONCLUSION: 1. No reversible perfusion defects are identified to suggest stress-induced myocardial ischemia. 2. Ejection fraction of 32% Electronically signed by: Heraclio Milton MD 04/05/2018 10:58 AM EDT
[2018-04-05] MEDS: FUROSEMIDE 40 MG/4 ML VIAL IV PUSH SCH (11:04)
--- NOTE | 2018-04-05 12:09 | PD.CARD.PN ---
Subjective Subjective Remarks No events overnight SOB with walking, some chest pressure when laying flat Heart rates 90-105 Objective Medications Current Medications Medications (Trade) Dose Ordered Sig/Nichelle Route Start Time Stop Time Status Last Admin (NS Flush) 2 ml UNSCH PRN IV FLUSH 04/02/18 20:45 (NS Flush) 2 ml BID IV FLUSH 04/02/18 21:00 04/05/18 08:55 (Eliquis) 5 mg BID PO 04/02/18 21:00 04/05/18 08:55 (Lipitor) 40 mg DAILY PO 04/03/18 09:00 04/05/18 08:55 (KCl) 10 meq DAILY PO 04/04/18 09:00 04/05/18 08:55 (Tylenol) 650 mg Q4H PRN PO 04/04/18 10:30 (Zofran Odt) 4 mg Q6H PRN PO 04/04/18 10:45 (Mimi-Colace) 1 tab BID PRN PO 04/04/18 10:30 (Restoril) 15 mg HS PRN PO 04/04/18 10:30 04/05/18 00:36 (Lasix Inj) 40 mg DAILY IV PUSH 04/05/18 09:00 04/05/18 11:04 (Aspirin Chew) 81 mg DAILY CHEW 04/05/18 09:00 04/05/18 08:55 (Lopressor) 50 mg Q8HR PO 04/04/18 17:00 04/05/18 05:51 (Mucinex Er) 600 mg BID PO 04/04/18 21:00 04/05/18 08:54 (Levaquin) 500 mg DAILY PO 04/06/18 09:00 Vital Signs / I&O Vital Signs Date Time Temp Pulse Resp B/P (MAP) Pulse Ox O2 Delivery O2 Flow Rate FiO2 04/05/18 08:07 97 04/05/18 08:00 Room Air 04/05/18 08:00 97.3 98 20 121/92 (102) 96 04/05/18 04:00 97.1 82 20 117/97 (104) 94 04/05/18 04:00 96 04/05/18 00:00 119 04/05/18 00:00 97.2 110 20 101/87 (92) 94 6/9/18 20:30 Room Air 04/04/18 20:00 97.3 112 20 114/99 (104) 94 04/04/18 20:00 113 04/04/18 16:04 115 04/04/18 16:00 98.0 110 18 130/98 (109) 96 I/O 04/04/18 04/04/18 04/04/18 04/05/18 04/05/18 04/05/18 07:00 15:00 23:00 07:00 15:00 23:00 Intake Total 490 ml 240 ml 225 ml Output Total 400 ml 1000 ml Balance 490 ml -160 ml -775 ml Intake Oral 240 ml 240 ml IV Total 250 ml 225 ml Output Urine Total 400 ml 1000 ml # Voids 1 # Bowel Movements 1 2 Physical Exam GENERAL: NAD, AAOx3 SKIN: Warm and dry. HEAD: Atraumatic. Normocephalic. EYES: Pupils equal and round. No scleral icterus. No injection or drainage. ENT: No nasal bleeding or discharge. Mucous membranes pink and moist. NECK: Trachea midline. No JVD. CARDIOVASCULAR: Irregularly irregular RESPIRATORY: No accessory muscle use. Decreased breath sounds bilaterally GASTROINTESTINAL: Abdomen soft, non-tender, nondistended. Hepatic and splenic margins not palpable. MUSCULOSKELETAL: Extremities without clubbing, cyanosis. 1+ pitting edema bilaterally. No obvious deformities. NEUROLOGICAL: Awake and alert. No obvious cranial nerve deficits. Motor grossly within normal limits. Five out of 5 muscle strength in the arms and legs. Normal speech. PSYCHIATRIC: Appropriate mood and affect; insight and judgment normal. Laboratory Laboratory Tests Test 04/04/18 14:55 04/05/18 04:15 Blood Urea Nitrogen 20 MG/DL 24 MG/DL Creatinine 1.43 MG/DL 1.54 MG/DL Random Glucose 92 MG/DL 99 MG/DL Calcium Level 9.1 MG/DL 8.9 MG/DL Sodium Level 142 MEQ/L 143 MEQ/L Potassium Level 4.1 MEQ/L 4.1 MEQ/L Chloride Level 107 MEQ/L 108 MEQ/L Carbon Dioxide Level 23.8 MEQ/L 23.7 MEQ/L Anion Gap 11 MEQ/L 11 MEQ/L Estimat Glomerular Filtration Rate 52 ML/MIN 48 ML/MIN B-Type Natriuretic Peptide 314 PG/ML Assessment and Plan Problem List: (1) Atrial fibrillation with RVR ICD Codes: I48.91 - Unspecified atrial fibrillation Status: Acute (2) CHF (congestive heart failure) ICD Codes: I50.9 - Heart failure, unspecified Status: Acute (3) Pneumonia ICD Codes: J18.9 - Pneumonia, unspecified organism Status: Acute Assessment and Plan 1) Afib with RVR Heart rates still elevated mildly Change Toprol XL to Lopressor for better titration of meds CHADSVASC = 2, Eliquis 5mg BID Will place on hold for possible cath tomorrow 2) Acute decompensated failure Needs further diuresis, increased Lasix to 40mg IV EF 30-35% on echo Possible balanced ischemia, plan for possible right and left heart cath tomorrow, will discuss with pt Other possibilities are NICM or tachyarrhythmic 3) Chest pain Most likely due to acute heart failure with elevate LVEDP Nuclear stress showing no ischemia, although possibility of balanced ischemia 4) HIGIINO on CPAP 5) Tobacco abuse Plans on quitting 6) Decrease NSAID use Problem Qualifiers (1) CHF (congestive heart failure): Qualified Codes: I50.9 - Heart failure, unspecified (2) Pneumonia: Qualified Codes: J18.9 - Pneumonia, unspecified organism Darrel Zimmerman DO Apr 05, 2018 12:09
--- NOTE | 2018-04-05 13:49 | ECHRPT ---
Indication: Heart failure CONCLUSIONS The left ventricular systolic function is tmnihlfp-un-rqodomz reduced with an estimated ejection fra ction in the range of 30-35%. Moderately dilated left ventricle. There is global left ventricular dysfunction. The right ventricular systoilc function is mildly decreased. Vmip-bv-kipzkxis mitral valve regurgitation. There is mild tricuspid valve regurgitation. The inferior vena cava is dilated. BP: / HR: Rhythm: MEASUREMENTS (Male / Female) Normal Values Technical Quality: 2D ECHO LV Diastolic Diameter PLAX 6.3 cm 4.2 - 5.9 / 3.9 - 5.3 cm LV Systolic Diameter PLAX 5.5 cm IVS Diastolic Thickness 1.1 cm 0.6 - 1.0 / 0.6 - 0.9 cm LVPW Diastolic Thickness 1.0 cm 0.6 - 1.0 / 0.6 - 0.9 cm LV Relative Wall Thickness 0.3 RV Internal Dim ED PLAX 2.4 cm LA Systolic Diameter LX 5.1 cm 3.0 - 4.0 / 2.7 - 3.8 cm DOPPLER Mitral E Point Velocity 120.0 cm/s TR Peak Velocity 267.0 cm/s TR Peak Gradient 28.5 mmHg Right Atrial Pressure 10.0 mmHg Pulmonary Artery Systolic Pressu 38.5 mmHg Right Ventricular Systolic Press 38.5 mmHg FINDINGS LEFT VENTRICLE Moderately dilated left ventricle. Wall thickness is normal. The left ventricular systolic function is lcprkoxp-hf-njqctdz reduced with an estimated ejection fra ction in the range of 30-35%. There is global left ventricular dysfunction. RIGHT VENTRICLE Normal right ventricular size The right ventricular systoilc function is mildly decreased. LEFT ATRIUM The left atrial size is moderately dilated. RIGHT ATRIUM The right atrial size is normal. ATRIAL SEPTUM Normal atrial septal thickness AORTA The aortic root and proximal ascending aorta are normal in size on limited imaging. MITRAL VALVE Structurally normal mitral valve. Tbuj-id-nojyediz mitral valve regurgitation. No mitral valve stenosis. AORTIC VALVE Probable trileaflet aortic valve. No aortic valve stenosis or regurgitation. TRICUSPID VALVE Structurally normal tricuspid valve. There is mild tricuspid valve regurgitation. No tricuspid valve stenosis. The estimated pulmonary arterial pressure is 38.5 mmHg. PULMONARY VALVE No pulmonary valve regurgitation or stenosis. VESSELS The inferior vena cava is dilated. PERICARDIUM No pericardial effusion. Darrel Zimmerman DO (Electronically Signed) Final Date:05 April 2018 13:48
[2018-04-06] VITALS: BP 121/93; PULSE 101; PULSE 110; RESP 18; TEMP 97.5; O2SAT 94
[2018-04-06 04:00] VITALS: BP 121/99; PULSE 85; PULSE 92; RESP 18; TEMP 97.1; O2SAT 95
[2018-04-06] MEDS: METOPROLOL TARTRATE 50 MG TAB PO SCH ×3 (05:20→22:14)
[2018-04-06 08:00] VITALS: BP 135/112; PULSE 88; RESP 20; TEMP 97.4; O2SAT 98
[2018-04-06] MEDS: LEVOFLOXACIN 500 MG TAB PO SCH (08:13)
[2018-04-06] MEDS: POTASSIUM CHLORIDE 10 MEQ CONTROLLED RELEASE TAB PO SCH (08:13)
[2018-04-06] MEDS: ATORVASTATIN 40 MG TAB PO SCH (08:13)
[2018-04-06] MEDS: SODIUM CHLORIDE 0.9% FLUSH 10 ML FLUSH IV FLUSH SCH ×2 (08:13→20:08)
[2018-04-06] MEDS: FUROSEMIDE 40 MG/4 ML VIAL IV PUSH SCH (08:13)
[2018-04-06] MEDS: ASPIRIN 81 MG CHEW TAB CHEW SCH (08:13)
[2018-04-06] MEDS: guaiFENesin E.R. 600 MG TAB PO SCH ×2 (08:13→20:08)
[2018-04-06] MEDS ORDERED: HEPARIN-NS/PF INJ 1,000 ML ONE (08:16)
[2018-04-06] MEDS ORDERED: HEPARIN SODIUM - IV 10,000 UNITS/10 ML VIAL ONE (08:17)
[2018-04-06] MEDS ORDERED: MIDAZOLAM HCL 2 MG/2 ML VIAL ONE (08:17)
[2018-04-06] MEDS ORDERED: VERAPAMIL HCL 5 MG/2 ML VIAL ONE (08:18)
--- NOTE | 2018-04-06 09:41 | CATHPROC ---
[facility] HIS Report Study Information Study Number Admission Scheduled Start Study Start [id number] Apr 02 2018 8:37PM 04/05/2018 Apr 06 2018 8:06AM [place] [facility] Cardiac Catheterization Admit Source Facility Department Other [facility] - [facility] Physician and Clinical Staff Initial Darrel Bowser Stud Beef Cattle Farmer Jakub Thompson,ELPIDIO Stud Beef Cattle Farmer Abigail Cox,ELPIDIO Recorder Roopa Jacobo ,RT(R) Scrub Rhina Weiss,RT(R) Procedures Performed Procedure Location (Site) Vessel Name Coronary Angiograms LCA Left Coronary Coronary Angiograms RCA Right Coronary Wire insertion Radial (right) Radial Art. Equipment Time Tobacco Packing Machine Operator Description Size Mfg Part Number Used/Scraped CATHETER, FR5 SWAN MONIQUE 08:12 Aconex FR 5 [id number] *[id number] Used MONITOR TRANSDUCER, TRUWAVE [id number] 08:09 [employer]HE [employer]ATS * Used W/STOCKCOCK *[id number] *[id number] 08:09 [email or web address] BLANKET,WARM AIR CCL * Used *[id number] 08:09 [email or web address] PACK, CCL CUSTOM * Used *[id number] 09:07 MEDTRONIC JL 3.5 DXTERITY CATHETER FR 5 Used *[id number] BAND, RADIAL COMPRESSION TR [id number] 09:17 [employer] 29CM Used LARGE 29 *[id number] 08:12 [employer] WIRE, EXCHANGE 260CM .035 260CM Used *[id number] PROBE COVER, STERILE [id number] 08:30 [employer] * Used ULTRASOUND W/ GEL *[id number] 08:09 NAMIC MANIFOLD, 4 PORT * Used *[id number] 08:09 NYCOMED OMNIPAQUE, 350 MG, 150ML 150ML [id number] Used SHEATH, FR6 TRANSRADIAL RM*[id number] 08:11 [employer] FR 6 Used SLENDER 10CM *[id number] SHEATH, FR6 TRANSRADIAL RM*[id number] 08:11 [employer] FR 6 Used SLENDER 10CM *[id number] History: Current Medications Medication Dosage/Unit Route Frequency Last Date/Time Taken ASA Beta Guanako Statins (any) ELIQUIS NAPROXEN History: Risk Factors Family History of Hypertension Dyslipidemia Previous KS Previous Heart Failure Premature CAD Yes Yes Yes No No Prior Valve Prior PCI Prior CABG Surgery No No No Cerebrovascular Peripheral Artery Chronic Lung On Dialysis Diabetes Disease Disease Disease No No No No No History: Stress Tests Stress or Imaging Studies Performed Yes Standard Exercise Stress Test No Stress Echo No Stress Test SPECT Stress Test SPECT Result Yes Negative Stress Test CMR No Cardiac CTA Coronary Calcium Score No No History: Other Current Smoker Method Packs a Day Years Used Pack Years Yes Cigarettes 1 30 30 Labs Hgb (g/dl) Hct (%) WBC (l/cumm) Platelets (thousands) 11.60-17.00 35.00-51.00 4.00-11.00 150.00-450.00 17.0 52 8.7 195 Glucose (mg/dl) BUN (mg/dl) Creatinine (mg/dl) BUN:Creatinine (1:x) 74.00-106.00 7.00-18.00 0.50-1.30 10.00-20.00 99 24 1.5 16 Na (meq/l) K (meq/l) 136.00-145.00 3.50-5.10 143 4.1 INR (PTT:PT) 0.90-1.10 1.2 CPK-MB (ng/ML) 0.50-3.60 Not Drawn Medication Medication Total Dose (Bolus/Oral) Medication Total Dosage/Unit 1% XYLOCAINE 5 mL FENTANYL 50 mcg RADIAL COCKTAIL 5 mL (Bolus) Medications (Bolus/Oral) Medication Time Given Dosage/Unit Administered By Rodrigue FENTANYL 04/06/2018 8:45:41 AM 50 mcg Jakub Thompson 50 mcg FENTANYL given in lab by Jakub Thompson, RN in Right Hand via Peripheral IV. Ordered by Darrel Mo 1% XYLOCAINE 04/06/2018 8:47:06 AM 5 mL Darrel Zimmerman 5 mL 1% XYLOCAINE given in lab by Darrel Zimmerman in Right Radial via Subcutaneous. Ordered by Darrel Martins Ntg 200mcg Verapamil 2.5mg Heparin RADIAL COCKTAIL 04/06/2018 8:50:34 AM 5 mL (Bolus) Darrel Zimmerman 3000U 5 mL (Bolus) RADIAL COCKTAIL given in lab by Darrel Zimmerman in Right Radial via Radial. Using [S olution Name]. Ordered by Darrel Zimmerman Reason: Ntg 200mcg Verapamil 2.5mg Heparin 5000U. Medication (Drip) Medication Time Given Dosage/Unit Concentration/Unit Diluent (ml) Solution IV Solutions 04/06/2018 8:26:09 AM 50 mL (IV) NaCl .9 Patient arrived on IV Solutions in Right Hand via Peripheral IV. Pump/Drip Flow using NaCl .9. Initial Case Assessment Cardiovascular HR Rhythm NIBP 102 sr 164/86 Edema Present Skin color Skin Mild Normal Warm Dry Circulatory - Right Pulses Dorsalis Pedis Femoral Radial 1 1 2 Scale (0,1,2,3,4,d) Circulatory - Left Pulses Dorsalis Pedis Femoral Radial 1 1 Scale (0,1,2,3,4,d) Neurological State Oriented to time-place- Alert Moves all extremities person Respiration - General Respiration Rate SpO2 (%) (B/min) 25 94 Final Case Assessment Cardiovascular HR Rhythm NIBP 102 sr 164/86 Edema Present Skin color Skin Mild Normal Warm Dry Circulatory - Right Pulses Dorsalis Pedis Femoral Radial 1 1 2 Scale (0,1,2,3,4,d) Circulatory - Left Pulses Dorsalis Pedis Femoral Radial 1 1 Scale (0,1,2,3,4,d) Neurological State Oriented to time-place- Alert Moves all extremities person Respiration - General Respiration Rate SpO2 (%) (B/min) 25 94 Chronological Log Time Study Chronological Log 8:18:01 Patient arrived via Bed. 8:18:02 Patient Name, D.O.B, / Armband Verified By R.N. Vitals capture started with the following parameters, Patient=Adult, Interval=5 min, Initial Pr nrxava=502 mmHg, 8:25:23 Deflation Rate=5 mmHg, Cuff placed on Left Arm 8:25:25 Consent signed by the physician and the patient and verified by the [facility] staff. 8:25:28 Pre-op and post- op instructions given; patient acknowledges understanding of instructions. 8:25:32 Verbal Stimulation=2 Physical Stimulation=2 Airway=2 Respiration=2 TOTAL=8. (0=absent, 1=li mited, 2=present) 8:25:38 Allens test performed on the right radial and ulnar artery. 8:25:40 Immediate Presedation assesment performed by physician. 8:25:40 Patient has been NPO for More than 6Hrs. 8:25:41 Skin Breakdown- none per patient 8:26:01 LM=663 bpm, CQFP=437/86 mmhg, SpO2=93.0 %, Resp=15 B/min, Pain=0, Nina=10, Napoles=2 8:26:06 Patient Warmer Placed on the Table. 8:26:08 Calista Prominences Protected 8:26:09 A # 18 IV was noted in the Hand (right). Grade = 0 8:26:09 Patient arrived on IV Solutions in Right Hand via Peripheral IV. Pump/Drip Flow using NaCl .9. 8:26:14 History and physical on the chart or being dictated. Assessment: Initial Case, KM=816 BPM, Rhythm=sr, BVQP=280/86 mmhg, Edema=Mild, Color=Normal, Ski n = Warm, Dry Right Pulses: Jorge Ped=1, Femoral=1, Radial=2 8:26:14 Left Pulses: Jorge Ped=1, Femoral=1 Neurological: State=Alert, Ox3, MARLEY Respiration: Resp=25 B/min, SpO2=94 % 8:29:33 Reference ECG taken 8:31:00 TS=674 bpm, ZDJJ=751/101 mmhg, SpO2=94.0 %, Resp=15 B/min, Pain=0, Nina=10, Napoles=2 8:31:10 Right radial, right brachial, and right groin prepped with 2% chlorhexidine, and draped afte r a 3 min. waiting time. 8:36:32 MD arrived. 8:36:35 ZK=548 bpm, INLS=919/137 mmhg, SpO2=94.0 %, Resp=20 B/min 8:39:57 Pressure channel 1 zeroed. 8:40:56 HR=89 bpm, QVQE=684/105 mmhg, SpO2=93.0 %, Resp=21 B/min, Pain=0, Nina=10, Napoles=2 Time Out. Correct patient, correct procedure, correct physician, labs, allergies, and equipment verified with metallurgical lab technician 8:45:00 team present. Fire risk assesment completed (see hard stop sheet for coding). Time Out Concu rred by MD and individual staff in procedure. 8:45:18 Case Start 8:45:41 50 mcg FENTANYL given in lab by Jakub Thompson RN in Right Hand via Peripheral IV. Ordered b y Zimmerman, Vincent G. 8:45:59 KP=455 bpm, FETD=665/84 mmhg, Resp=15 B/min 5 mL 1% XYLOCAINE given in lab by Darrel Zimmerman in Right Radial via Subcutaneous. Ordered by Erasmo, 8:47:06 Darrel Villar. 8:49:54 Access site was Right Radial Artery. 8:50:07 A wire was inserted via Radial (right). A SHEATH, FR6 TRANSRADIAL SLENDER 10CM FR 6 was advanced into the Radial (right) using the Percu taneous 8:50:20 technique. 5 mL (Bolus) RADIAL COCKTAIL given in lab by Darrel Zimmerman in Right Radial via Radial. Usi ng [Solution Name]. 8:50:34 Ordered by Darrel Zimmerman. Reason: Ntg 200mcg Verapamil 2.5mg Heparin 5000U. 8:51:02 EH=963 bpm, QBST=033/94 mmhg, SpO2=96.0 %, Resp=16 B/min, Pain=0, Nina=10, Napoles=2 8:52:53 Access site was Right Brachial Vein. 8:53:50 A wire was inserted via Radial (right). A SHEATH, FR6 TRANSRADIAL SLENDER 10CM FR 6 was advanced into the Brach. Vein (right) using the Percutaneous 8:53:54 technique. 8:55:50 A CATHETER, FR5 SWAN MONIQUE MONITOR FR 5 was inserted via Brach. Vein (right) 8:55:57 EB=736 bpm, ABEQ=242/92 mmhg, SpO2=89.0 %, Resp=15 B/min, Pain=0, Nina=10, Napoles=2 Recorded Pressure: PCW, HR=89, Condition=Condition 1 8:57:23 (Pulmonary Capillary Wedge) PCW 37/37/33 8:58:59 Saturation: Site=PA (Pulmonary Artery) , O2=65.6 %, Hgb=17 gm/dl, Condition=Condition 1. Use d in calculation. 9:00:06 Saturation: Site=Ao (Aorta) , O2=94 %, Hgb=17 gm/dl, Condition=Condition 1. Used in calculat ion. Recorded Pressure: MPA, RQ=601, Condition=Condition 1 9:00:40 (Main Pulmonary Artery) MPA 39/29/33 Recorded Pressure: RV, HR=85, Condition=Condition 1 9:01:41 (Right Ventricle) RV 43/15/15 Recorded Pressure: RA, HR=84, Condition=Condition 1 9:02:04 (Right Atrium) RA /17 9:02:18 HR=88 bpm, REJL=937/106 mmhg, SpO2=90.0 %, Resp=15 B/min, Pain=0, Nina=10, Napoles=2 9:02:21 [place] Monique Catheter Removed A JR 4.0 INFINITI CATHETER FR 5 was advanced over a wire. OMNIPAQUE, 350 MG, 150ML 150ML was use d for 9:02:53 injections. Recorded Pressure: LV, AP=275, Condition=Condition 1 9:04:03 (Left Ventricle) LV 111/24/26 Recorded Pressure: LV, Ao, HR=90, Condition=Condition 1 9:04:21 (Left Ventricle) LV 117/11/19, (Aorta) Ao 105/87/97 9:04:54 The RCA was injected and visualized at various angles. OMNIPAQUE, 350 MG, 150ML 150ML used . 9:06:03 MO=947 bpm, XFHO=354/80 mmhg, SpO2=91.0 %, Resp=16 B/min, Pain=0, Nina=10, Napoles=2 9:06:44 Catheter was removed A JL 3.5 DXTERITY CATHETER FR 5 was advanced over a wire. OMNIPAQUE, 350 MG, 150ML 150ML was us ed for 9:07:36 injections. 9:08:58 The LCA was injected and visualized at various angles. OMNIPAQUE, 350 MG, 150ML 150ML used . 9:12:20 US=219 bpm, QMDE=469/92 mmhg, SpO2=93.0 %, Resp=19 B/min, Pain=0, Nina=10, Napoles=2 9:12:54 Catheter was removed 9:14:05 Activated Clotting Time Drawn 9:15:47 Case End (Physician broke scrub) Assessment: Final Case, KZ=148 BPM, Rhythm=sr, XOGI=452/86 mmhg, Edema=Mild, Color=Normal, Skin = Warm, Dry Right Pulses: Jorge Ped=1, Femoral=1, Radial=2 9:15:57 Left Pulses: Jorge Ped=1, Femoral=1 Neurological: State=Alert, Ox3, MARLEY Respiration: Resp=25 B/min, SpO2=94 % 9:16:11 Catheter(s) removed without difficulty 9:16:15 Right Brachial Vein Sheath left in place, will be removed in Holding Area 9:16:30 HR=83 bpm, LEUI=224/94 mmhg, SpO2=94.0 %, Resp=21 B/min Radial Compression Device Used. 13 mLs of air placed in BAND, RADIAL COMPRESSION TR LARGE 29 29 CM. Affected 9:16:32 hand ~O2 SATURATION~ % O2 saturation. 9:16:48 Sterile dressing applied to site 9:16:49 No case complications noted. 9:16:50 Cine recording checked. 9:16:51 Bedside Report will be given. 9:16:55 A Left and Right Heart Cath was performed. 9:21:00 RH=738 bpm, XSTG=463/96 mmhg, SpO2=93.0 %, Resp=21 B/min, Pain=0, Nina=10, Napoles=2 9:22:39 ACT (Normal Range 90-180) = 181 9:29:[address] [facility] End Study - Contrast Media Used In Study Contrast Total Opened (mL) Total Used (mL) Total Wasted (mL) Omnipaque 45 45 0 End Study - Maximum Contrast Load Max Contrast Load (mL) 473.3 End Study - Radiation Exposure Fluoro Time (minutes) 4.1 End Study - Sheaths Sheaths Pulled By Sheath Hold Time (min) Rhina Weiss End Study - Patient Disposition Complications Transferred To Interventional Outcome No Critical Care Bed No attempt made
[2018-04-06] MEDS ORDERED: MISC INFORMATION XX ONE (09:45)
--- NOTE | 2018-04-06 09:59 | MA ---
cc: Darrel Zimmerman DO DATE: 04/06/2018 PROCEDURES Left heart catheterization, right heart catheterization, coronary angiogram, ultrasound-guided access. PREOPERATIVE DIAGNOSES: Acute decompensated heart failure, new cardiomyopathy, chest pain. POSTOPERATIVE DIAGNOSES: Acute decompensated heart failure, new nonischemic cardiomyopathy, mild pulmonary hypertension type 2, mild coronary artery disease. MEDICATIONS: Fentanyl 50 mcg, verapamil 2.5 mg, nitro 200 mcg, heparin 5000 units. CONTRAST USED: 45 mL. MODERATE SEDATION: 0 minutes. FLUOROSCOPY: 4.1 minutes. FRAILTY SCORE: 3. ESTIMATED BLOOD LOSS: 10 mL. PROCEDURAL SUMMARY: Jabari Davis is a pleasant 52-year-old male who presented to [facility] Emergency Room due to atrial fibrillation with rapid ventricular response and shortness of breath. He also states that he has had significant chest pain with his shortness of breath. He was found to have an ejection fraction of 30-35 percent, which is new for him. He underwent stress testing which showed nonischemic, but I felt that it was reasonable to bring him for a right heart catheterization to determine his overall fluid status, as well as a left heart catheterization due to his chest pain and a new cardiomyopathy. Risks, benefits and alternatives were explained to him and he consented as such. He was brought to the lab and prepped in the usual sterile fashion. The right radial artery was accessed using a modified Seldinger technique and placement of a 5/6 Macanese slender sheath. The right brachial vein was accessed using a modified Seldinger technique with ultrasound guidance and placement of a 5/6 Macanese slender sheath. Both were easily aspirated and flushed. A Conway-Ricardo catheter was advanced to a wedge position and then oxygen saturations, as well as pressures were done in a standard fashion upon pullback throughout the heart. Conway-Ricardo catheter was removed. A JR4 was advanced over a J-wire to the ascending aorta and across the aortic valve for measurement of left ventricular pressure. This was pulled back across the aortic valve showing no significant gradient of aortic stenosis. JR4 was used for selective angiography of the right coronary artery system. This was exchanged out for a JL3.5, which was used for selective angiography of the left coronary artery system. JL3.5 was removed over a J wire. A radial band was placed over the arteriotomy site for hemostasis. ACT was checked and mildly elevated and so a brachial vein sheath will be removed and pressure held for hemostasis in our holding unit. The patient left the dairy and food laboratory assistant cardiovascularly stable. FINDINGS: Left Main: Large vessel with no significant disease. It bifurcates into an LAD and circumflex. LAD: Normal-sized vessel with 30% stenosis in the midportion. It gives off one diagonal which has 30% ostial disease. Left Circumflex: A moderate to large sized vessel with mild luminal irregularities throughout. No significant disease. RCA: Moderate to large size vessel with a 30% lesion in the mid portion. Distally, it supplies the PDA as well as the posterolateral branch with no significant disease. HEMODYNAMICS: RA 17. RV 43/15, RVEDP 15. PA 39/29, mean PA 33. Wedge 33. Cardiac output 4.9. Cardiac index 1.9. LVEDP 25. IMPRESSIONS: 1. Acute decompensated heart failure. 2. New nonischemic cardiomyopathy with an ejection fraction of 30%. 3. Mild pulmonary hypertension type 2 due to elevated left-sided filling pressures. 4. Mild coronary artery disease. RECOMMENDATIONS: 1. Mr. Davis appears to have nonischemic cardiomyopathy and he will be recommended placement on heart failure medications. Currently, he is on metoprolol tartrate and this will need to be changed to Toprol-XL upon discharge. He has not been placed on an MARLEN inhibitor at this time as he does have CKD 3 and we are attempting to diurese him. 2. His nonischemic cardiomyopathy may be due to tachyarrhythmia with his atrial fibrillation. We will attempt to control him as best we can using AV nelsy blocking agents. 3. As he still has high left-sided filling pressures, we will attempt to diurese him as possible. We will have to watch his kidney function while we do this. 4. He should have a repeat echo in 3 months to evaluate his overall EF while on the medications and heart rates controlled. Thank you for allowing me to see Jabari Davis. If there are any questions, please do not hesitate to call. Darrel Zimmerman, DO VGP/DL , 09:37 AM , 09:58 AM
[2018-04-06] MEDS ORDERED: FUROSEMIDE 40 MG/4 ML VIAL IV PUSH ONE (10:00)
--- NOTE | 2018-04-06 10:35 | HHI.PR ---
Subjective Remarks Follow-up A. fib with RVR/CHF of unknown type/obstructive sleep apnea April 04, 2018-patient seen and examined; patient currently n.p.o. pending nuclear stress test today. Complains of shortness of breath with mild chest pain with exertion. by the bedside. April 05, 2018-patient seen and examined; still complains of chest tightness; plan for the second part of nuclear stress test today April 06, 2018 went for cardiac cath by Dr Aragon , clean cath no stents, discussed with Dr Aragon. Patient still with sob. Patient says he is still with intermittent chest pain. No n/v/d/c. No fever or chills. Objective Vitals Vital Signs Date Time Temp Pulse Resp B/P (MAP) Pulse Ox O2 Delivery O2 Flow Rate FiO2 04/06/18 09:30 92 Room Air 04/06/18 08:00 97.4 88 20 135/112 (120) 98 04/06/18 07:10 Room Air 04/06/18 04:00 97.1 85 18 121/99 (106) 95 04/06/18 04:00 92 04/06/18 00:00 101 04/06/18 00:00 97.5 110 18 121/93 (102) 94 04/05/18 21:20 Room Air 04/05/18 20:00 94 04/05/18 20:00 97.6 107 17 116/82 (93) 93 04/05/18 16:19 103 04/05/18 16:00 97.8 103 20 114/94 (101) 95 04/05/18 12:00 97.5 95 20 113/94 (100) 95 04/05/18 11:58 99 I/O 04/05/18 04/05/18 04/05/18 04/06/18 04/06/18 04/06/18 07:00 15:00 23:00 07:00 15:00 23:00 Intake Total 225 ml 480 ml 180 ml Output Total 1000 ml 2400 ml 250 ml Balance -775 ml -1920 ml -70 ml Intake Oral 480 ml 180 ml IV Total 225 ml Output Urine Total 1000 ml 2400 ml 250 ml # Bowel Movements 1 Result Diagram: 04/03/18 0332 04/05/18 0415 Imaging Last Impressions Myocardial Perfusion Scan Nuc Med 04/04/18 0000 Signed Impressions: CONCLUSION: 1. No reversible perfusion defects are identified to suggest stress-induced my ocardial ischemia. 2. Ejection fraction of 32% Chest X-Ray 04/02/18 1634 Signed Impressions: CONCLUSION: Slight CHF and mild focal consolidation right middle lobe is also s uspected. There is no appreciable change. CT Angiography 04/02/18 0000 Signed Impressions: CONCLUSION: 1. Examination is significantly degraded by respiratory motion artifact. No PE is identified through the lobar and some of the segmental level pulmonary marco eddy. More distal PE cannot be confidently excluded based on this examination. 2. There are interstitial opacities and groundglass opacity bilaterally, great er in the lower lung zones in a pattern suggesting pulmonary edema. Small to mo derate-sized bilateral pleural effusions are present. Objective Remarks GENERAL: 52 yo male, well nourished well developed male patient, appears in NAD CARDIOVASCULAR: Irregular regular rate and rhythm without murmurs, gallops, or rubs. RESPIRATORY: Breath sounds equal bilaterally. No accessory muscle use. GASTROINTESTINAL: Abdomen soft, non-tender, nondistended. MUSCULOSKELETAL: No cyanosis, or edema. BACK: Nontender without obvious deformity. No CVA tenderness. Procedures None A/P Problem List: (1) Atrial fibrillation with RVR ICD Code: I48.91 - Unspecified atrial fibrillation Status: Acute Assessment and Plan 52-year-old man with Atrial fibrillation with RVR: Appreciate input from cardiology Awaiting for second prior nuclear stress test today April 05, 2018 continue metoprolol. Anticoagulation with Eliquis 2D echocardiogram reviewed EF of 30-35% Start lisinopril low dose when kidney function at baseline Community-acquired pneumonia Currently on Levaquin supplemental oxygen as needed. Hyperlipidemia- Continue statin. Probable systolic CHF EF of 30-35% Nonischemic cardiomyopathy prob 2/2 long standing ?Afib 2D echocardiogram EF of 30- 35% Continue with Lasix Stress test reviewed with fixed defect, EF 32% S/p cardiac cath by Dr Aragon appreciate recs. Nonischemic cardiomyopathy likely 2/2 long standing Afib Acute kidney injury: Secondary to diuresis. Monitor BUN and creatinine, and avoid all nephrotoxic drug Obstructive sleep apnea Continue with BiPAP at night Tobacco cessation strongly advised DVT prophylaxis: Eliquis. DC when improved. Discussed with Dr Aragon , continue diuresing patient for 1 -2 days poss DC in 1-2 days if continues to improve CosmMary black MD Apr 06, 2018 10:35
[2018-04-06] MEDS ORDERED: IOHEXOL 350 MG/ML 50 ML BTL (for Cath Lab) OTHER ONE (10:42)
--- NOTE | 2018-04-06 11:06 | PD.CARD.PN ---
Subjective Subjective Remarks No events overnight SOB with walking, some chest pressure when laying flat Heart rates 90-105 Objective Medications Current Medications Medications (Trade) Dose Ordered Sig/Nichelle Route Start Time Stop Time Status Last Admin (NS Flush) 2 ml UNSCH PRN IV FLUSH 04/02/18 20:45 (NS Flush) 2 ml BID IV FLUSH 04/02/18 21:00 04/05/18 21:20 (Eliquis) 5 mg BID PO 04/02/18 21:00 Future Hold 04/05/18 08:55 (Lipitor) 40 mg DAILY PO 04/03/18 09:00 04/05/18 08:55 (KCl) 10 meq DAILY PO 04/04/18 09:00 04/05/18 08:55 (Tylenol) 650 mg Q4H PRN PO 04/04/18 10:30 (Zofran Odt) 4 mg Q6H PRN PO 04/04/18 10:45 (Mimi-Colace) 1 tab BID PRN PO 04/04/18 10:30 (Restoril) 15 mg HS PRN PO 04/04/18 10:30 04/05/18 22:44 (Lasix Inj) 40 mg DAILY IV PUSH 04/05/18 09:00 04/05/18 11:04 (Aspirin Chew) 81 mg DAILY CHEW 04/05/18 09:00 04/05/18 08:55 (Lopressor) 50 mg Q8HR PO 04/04/18 17:00 04/06/18 05:20 (Mucinex Er) 600 mg BID PO 04/04/18 21:00 04/05/18 21:20 (Levaquin) 500 mg DAILY PO 04/06/18 09:00 Vital Signs / I&O Vital Signs Date Time Temp Pulse Resp B/P (MAP) Pulse Ox O2 Delivery O2 Flow Rate FiO2 04/06/18 09:30 92 Room Air 04/06/18 08:00 97.4 88 20 135/112 (120) 98 04/06/18 07:10 Room Air 04/06/18 04:00 97.1 85 18 121/99 (106) 95 04/06/18 04:00 92 04/06/18 00:00 101 04/06/18 00:00 97.5 110 18 121/93 (102) 94 04/05/18 21:20 Room Air 04/05/18 20:00 94 04/05/18 20:00 97.6 107 17 116/82 (93) 93 04/05/18 16:19 103 04/05/18 16:00 97.8 103 20 114/94 (101) 95 04/05/18 12:00 97.5 95 20 113/94 (100) 95 04/05/18 11:58 99 I/O 04/05/18 04/05/18 04/05/18 04/06/18 04/06/18 04/06/18 07:00 15:00 23:00 07:00 15:00 23:00 Intake Total 225 ml 480 ml 180 ml Output Total 1000 ml 2400 ml 250 ml Balance -775 ml -1920 ml -70 ml Intake Oral 480 ml 180 ml IV Total 225 ml Output Urine Total 1000 ml 2400 ml 250 ml # Bowel Movements 1 Physical Exam GENERAL: NAD, AAOx3 SKIN: Warm and dry. HEAD: Atraumatic. Normocephalic. EYES: Pupils equal and round. No scleral icterus. No injection or drainage. ENT: No nasal bleeding or discharge. Mucous membranes pink and moist. NECK: Trachea midline. No JVD. CARDIOVASCULAR: Irregularly irregular RESPIRATORY: No accessory muscle use. Decreased breath sounds bilaterally GASTROINTESTINAL: Abdomen soft, non-tender, nondistended. Hepatic and splenic margins not palpable. MUSCULOSKELETAL: Extremities without clubbing, cyanosis. 1+ pitting edema bilaterally. No obvious deformities. NEUROLOGICAL: Awake and alert. No obvious cranial nerve deficits. Motor grossly within normal limits. Five out of 5 muscle strength in the arms and legs. Normal speech. PSYCHIATRIC: Appropriate mood and affect; insight and judgment normal. Assessment and Plan Problem List: (1) Atrial fibrillation with RVR ICD Codes: I48.91 - Unspecified atrial fibrillation Status: Acute (2) CHF (congestive heart failure) ICD Codes: I50.9 - Heart failure, unspecified Status: Acute (3) Pneumonia ICD Codes: J18.9 - Pneumonia, unspecified organism Status: Acute Assessment and Plan 1) Afib with RVR Heart rates still elevated mildly Change Toprol XL to Lopressor for better titration of meds CHADSVASC = 2, Eliquis 5mg BID Restart tomorrow 2) Acute decompensated failure, elevated LV pressures Needs further diuresis, increased Lasix to 40mg IV NICM EF 30-35% on echo Possible tachyarrhythmic No MARLEN-I, ARB or Entresto yet Wait until euvolemic and see where his kidney function is 3) Chest pain Most likely due to acute heart failure with elevate LVEDP Mild CAD 4) HIGINIO on CPAP Should have levels rechecked outpt 5) Tobacco abuse Plans on quitting 6) Decrease NSAID use Problem Qualifiers (1) CHF (congestive heart failure): Qualified Codes: I50.9 - Heart failure, unspecified (2) Pneumonia: Qualified Codes: J18.9 - Pneumonia, unspecified organism Darrel Zimmerman DO Apr 06, 2018 11:06
[2018-04-06 16:00] VITALS: BP 120/92; PULSE 85; RESP 20; TEMP 97.4; O2SAT 92
[2018-04-06 20:00] VITALS: BP 129/108; PULSE 108; PULSE 87; RESP 20; TEMP 97.8; O2SAT 92
[2018-04-06] MEDS ORDERED: LEVOFLOXACIN 750 MG PREMIX INJ 150 ML IV SCH (21:00)
[2018-04-06] MEDS: TEMAZEPAM 15 MG CAP PO PRN (22:14)
[2018-04-07] VITALS: BP 113/83; PULSE 91; PULSE 92; RESP 20; TEMP 97.2; O2SAT 92
[2018-04-07 04:00] VITALS: BP 120/68; PULSE 100; PULSE 108; RESP 20; TEMP 97.1; O2SAT 91
[2018-04-07] MEDS: METOPROLOL TARTRATE 50 MG TAB PO SCH ×3 (05:54→17:03)
[2018-04-07 07:14] LABS: AUTOMATED NEUTROPHIL # 4.6 TH/MM3 (1.8-7.7); BASOPHIL # 0.1 TH/MM3 (0-0.2); BASOPHIL % 0.9 % (0.0-2.0); EOSINOPHIL # 0.2 TH/MM3 (0-0.4); EOSINOPHIL % 2.9 % (0.0-4.0); HEMATOCRIT 54.3 % (39.0-51.0); HEMOGLOBIN 18.1 GM/DL (13.0-17.0); LYMPH % 31.5 % (9.0-44.0); LYMPHOCYTE # 2.6 TH/MM3 (1.0-4.8); MEAN CELL VOLUME 86.8 FL (80.0-100.0); MEAN CORPUSCULAR HGB CONC 33.4 % (32.0-36.0); MEAN PLATELET VOLUME 10.4 FL (7.0-11.0); MONO % 8.2 % (0.0-8.0); MONOCYTE # 0.7 TH/MM3 (0-0.9); NEUT % 56.5 % (16.0-70.0); PLATELET COUNT 211 TH/MM3 (150-450); RED BLOOD COUNT 6.26 MIL/MM3 (4.50-5.90); RED CELL DISTRIBUTION WIDTH 13.8 % (11.6-17.2); WHITE BLOOD COUNT 8.2 TH/MM3 (4.0-11.0)
[2018-04-07 07:22] LABS: BICARBONATE 21.1 MEQ/L (21.0-32.0); CALCIUM 8.6 MG/DL (8.5-10.1); CREATININE 1.32 MG/DL (0.60-1.30); MAGNESIUM 1.6 MG/DL (1.5-2.5)
[2018-04-07] MEDS: ATORVASTATIN 40 MG TAB PO SCH (07:55)
[2018-04-07] MEDS: POTASSIUM CHLORIDE 10 MEQ CONTROLLED RELEASE TAB PO SCH (07:55)
[2018-04-07] MEDS: LEVOFLOXACIN 500 MG TAB PO SCH (07:55)
[2018-04-07] MEDS: SODIUM CHLORIDE 0.9% FLUSH 10 ML FLUSH IV FLUSH SCH ×2 (07:56→20:29)
[2018-04-07] MEDS: guaiFENesin E.R. 600 MG TAB PO SCH ×2 (07:56→20:27)
[2018-04-07] MEDS: ASPIRIN 81 MG CHEW TAB CHEW SCH (07:56)
[2018-04-07] MEDS: FUROSEMIDE 40 MG/4 ML VIAL IV PUSH SCH (07:57)
[2018-04-07 08:00] VITALS: BP 156/110; PULSE 102; PULSE 112; RESP 20; TEMP 97.7; O2SAT 95
[2018-04-07] MEDS ORDERED: APIX5TAB PO (09:09)
[2018-04-07] MEDS ORDERED: LEVA500T33 PO (09:09)
[2018-04-07] MEDS ORDERED: ASPI81 CHEW (09:09)
[2018-04-07] MEDS ORDERED: FURO20TA PO (09:09)
[2018-04-07] MEDS ORDERED: METO1TAB9 PO (09:09)
--- NOTE | 2018-04-07 09:10 | HHI.DS ---
Discharge Summary Admission Date Apr 03, 2018 at 12:33 Discharge Date: Apr 08, 2018 Admitting Diagnosis AFIB W/ RVR, CHF, PNA (1) Atrial fibrillation with RVR ICD Code: I48.91 - Unspecified atrial fibrillation Status: Acute (2) CHF (congestive heart failure) ICD Code: I50.9 - Heart failure, unspecified Status: Acute (3) Pneumonia ICD Code: J18.9 - Pneumonia, unspecified organism Status: Acute Procedures ALESSIO and ablation 04/08/[address] Zimmerman cardiology Brief History - From Admission 52-year-old male with a past medical history significant for paroxysmal atrial fibrillation (patient previously refused anticoagulation) and hyperlipidemia presents the emergency department for evaluation of shortness of breath 1 week and heart palpitations. The patient denies any chest pain. He reports that he was seen by his primary care physician in [place] approximately 1 week ago who gave him an albuterol inhaler and recommended steroids however the patient refused steroids. He was not given any antibiotics at this time. He states that since he has been using the albuterol he feels as though his shortness of breath and palpitations are worsening. The patient denies any abdominal pain. No nausea/vomiting/diarrhea. No cough. No fevers/chills. No lateralizing signs/symptoms. CBC/BMP: 04/07/18 0645 04/07/18 0645 Significant Findings Laboratory Tests Test 04/04/18 14:55 04/05/18 04:15 04/07/18 06:45 Blood Urea Nitrogen 20 MG/DL (7-18) 24 MG/DL (7-18) 22 MG/DL (7-18) Creatinine 1.43 MG/DL (0.60-1.30) 1.54 MG/DL (0.60-1.30) 1.32 MG/DL (0.60-1.30) Estimat Glomerular Filtration Rate 52 ML/MIN (>89) 48 ML/MIN (>89) 57 ML/MIN (>89) Chloride Level 108 MEQ/L (98-107) B-Type Natriuretic Peptide 314 PG/ML (0-100) Red Blood Count 6.26 MIL/MM3 (4.50-5.90) Hemoglobin 18.1 GM/DL (13.0-17.0) Hematocrit 54.3 % (39.0-51.0) Monocytes (%) (Auto) 8.2 % (0.0-8.0) Imaging Last Impressions Myocardial Perfusion Scan Nuc Med 04/04/18 0000 Signed Impressions: CONCLUSION: 1. No reversible perfusion defects are identified to suggest stress-induced my ocardial ischemia. 2. Ejection fraction of 32% Chest X-Ray 04/02/18 1634 Signed Impressions: CONCLUSION: Slight CHF and mild focal consolidation right middle lobe is also s uspected. There is no appreciable change. CT Angiography 04/02/18 0000 Signed Impressions: CONCLUSION: 1. Examination is significantly degraded by respiratory motion artifact. No PE is identified through the lobar and some of the segmental level pulmonary marco eddy. More distal PE cannot be confidently excluded based on this examination. 2. There are interstitial opacities and groundglass opacity bilaterally, great er in the lower lung zones in a pattern suggesting pulmonary edema. Small to mo derate-sized bilateral pleural effusions are present. PE at Discharge GENERAL: 52 yo male, well nourished well developed male patient, appears in NAD CARDIOVASCULAR: Irregular regular rate and rhythm without murmurs, gallops, or rubs. RESPIRATORY: Breath sounds equal bilaterally. No accessory muscle use. GASTROINTESTINAL: Abdomen soft, non-tender, nondistended. MUSCULOSKELETAL: No cyanosis, or edema. BACK: Nontender without obvious deformity. No CVA tenderness. Pt update on day of discharge The patient is much better today. He is ambulating without any problems. Less shortness of breath. Had ALESSIO and ablation by Dr. Zimmerman. No chest pain or shortness of breath. Lower extremity edema is improved. Was cleared by cardiology to discharge Hospital Course Very pleasant 52-year-old male with past medical history of paroxysmal atrial fibrillation, hyperlipidemia who came with shortness of breath. Patient is found with pneumonia, congestive heart failure and persistent A. fib. The patient was started on IV antibiotics. Improved. She he had ALESSIO and ablation by Dr. Zimmerman. Patient is clear for discharge to follow-up with PCP and consultants as outpatient. Pt Condition on Discharge: Stable Discharge Disposition: Discharge Home Discharge Time: > 30 minutes Discharge Instructions DIET: Follow Instructions for: Heart Healthy Diet Activities you can perform: Regular-No Restrictions Follow up Referrals: Cardiology - 1 Week Cardiology @ PCP Follow-up - 2-3 Days PCP Follow-up @ DR. IQBAL New Medications: Furosemide (Furosemide) 20 Mg Tab 20 MG PO DAILY for edema, #30 TAB 0 Refills Lisinopril (Lisinopril) 5 Mg Tab 5 MG PO DAILY for Blood Pressure Management, #30 TAB 0 Refills Apixaban (Eliquis) 5 Mg Tab 5 MG PO BID for Blood Clot Prevention, #120 TAB Levofloxacin (Levaquin) 500 Mg Tablet 500 MG PO DAILY for Infection, #5 TAB Changed Medications: Metoprolol Succinate ER 24 HR (Metoprolol Succinate ER 24 HR) 50 Mg Tab 100 MG PO DAILY for Blood Pressure Management, #30 TAB 0 Refills (Changed from: 75 MG) Continued Medications: Atorvastatin (Atorvastatin) 40 Mg Tab 40 MG PO DAILY for Cholesterol Management, #30 TAB [address] (Fenofibric Acid ) 135 mg Capdr 135 MG PO DAILY, #30 CAP 0 Refills Fish Oil-Cholecalciferol (Fish Oil + D3) 1,200-1,000 Mg-Unit Cap 1 CAP PO DAILY for Nutritional Supplement, #30 CAP 0 Refills Discontinued Medications: Naproxen (Naproxen) 500 Mg Tab 500 MG PO BIDPC, #60 TAB 0 Refills Mary Johnson MD Apr 07, 2018 09:10
--- NOTE | 2018-04-07 09:21 | HHI.PR ---
Subjective Remarks Feels a little bit improved today. Still with shortness of breath when he is walking still with some lower extremity edema. Since he was not walking much however. No chest pain overnight. No lightheadedness. No nausea or vomiting no diaphoresis. Objective Vitals Vital Signs Date Time Temp Pulse Resp B/P (MAP) Pulse Ox O2 Delivery O2 Flow Rate FiO2 04/07/18 08:00 112 04/07/18 07:03 Room Air 04/07/18 04:00 97.1 100 20 120/68 (85) 91 04/07/18 04:00 108 04/07/18 04:00 Room Air 04/07/18 00:00 Room Air 04/07/18 00:00 97.2 91 20 113/83 (93) 92 04/07/18 00:00 92 04/06/18 20:00 97.8 87 20 129/108 (115) 92 04/06/18 20:00 Room Air 04/06/18 20:00 108 04/06/18 16:00 97.4 85 20 120/92 (101) 92 04/06/18 09:30 92 Room Air I/O 04/06/18 04/06/18 04/06/18 04/07/18 04/07/18 04/07/18 07:00 15:00 23:00 07:00 15:00 23:00 Intake Total 180 ml 480 ml 342 ml Output Total 250 ml 575 ml Balance -70 ml -95 ml 342 ml Intake Oral 180 ml 480 ml 342 ml Output Urine Total 250 ml 575 ml # Voids 2 4 # Bowel Movements 2 0 Result Diagram: 04/07/18 0645 04/07/18 0645 Imaging Last Impressions Myocardial Perfusion Scan Nuc Med 04/04/18 0000 Signed Impressions: CONCLUSION: 1. No reversible perfusion defects are identified to suggest stress-induced my ocardial ischemia. 2. Ejection fraction of 32% Chest X-Ray 04/02/18 1634 Signed Impressions: CONCLUSION: Slight CHF and mild focal consolidation right middle lobe is also s uspected. There is no appreciable change. CT Angiography 04/02/18 0000 Signed Impressions: CONCLUSION: 1. Examination is significantly degraded by respiratory motion artifact. No PE is identified through the lobar and some of the segmental level pulmonary marco eddy. More distal PE cannot be confidently excluded based on this examination. 2. There are interstitial opacities and groundglass opacity bilaterally, great er in the lower lung zones in a pattern suggesting pulmonary edema. Small to mo derate-sized bilateral pleural effusions are present. Objective Remarks GENERAL: 52 yo male, well nourished well developed male patient, appears in NAD CARDIOVASCULAR: Irregular regular rate and rhythm without murmurs, gallops, or rubs. RESPIRATORY: Breath sounds equal bilaterally. No accessory muscle use. GASTROINTESTINAL: Abdomen soft, non-tender, nondistended. MUSCULOSKELETAL: No cyanosis, or edema. BACK: Nontender without obvious deformity. No CVA tenderness. Procedures None A/P Problem List: (1) Atrial fibrillation with RVR ICD Code: I48.91 - Unspecified atrial fibrillation Status: Acute Assessment and Plan 52-year-old man with Atrial fibrillation with RVR: Appreciate input from cardiology Awaiting for second prior nuclear stress test today April 05, 2018 continue metoprolol. Anticoagulation with Eliquis 2D echocardiogram reviewed EF of 30-35% Start lisinopril low dose when kidney function at baseline Community-acquired pneumonia Currently on Levaquin supplemental oxygen as needed. Hyperlipidemia- Continue statin. Probable systolic CHF EF of 30-35% Nonischemic cardiomyopathy prob 2/2 long standing ?Afib 2D echocardiogram EF of 30- 35% Continue with Lasix Stress test reviewed with fixed defect, EF 32% S/p cardiac cath by Dr Aragon appreciate recs. Nonischemic cardiomyopathy likely 2/2 long standing Afib Acute kidney injury: Secondary to diuresis. Monitor BUN and creatinine, and avoid all nephrotoxic drug Obstructive sleep apnea Continue with BiPAP at night Tobacco cessation strongly advised DVT prophylaxis: Eliquis. DC when improved. Discussed with Dr Aragon , continue diuresing patient for 1 -2 days poss DC tomorrow if continues to improve and if he is cleared by cardiology Mary Johnson MD Apr 07, 2018 09:21
[2018-04-07 12:00] VITALS: BP 98/60; PULSE 72; PULSE 86; RESP 20; TEMP 97.4; O2SAT 94
--- NOTE | 2018-04-07 12:47 | PD.CARD.PN ---
Subjective Subjective Remarks No events overnight SOB better overall Heart rates still mildly elevated Objective Medications Current Medications Medications (Trade) Dose Ordered Sig/Nichelle Route Start Time Stop Time Status Last Admin (NS Flush) 2 ml UNSCH PRN IV FLUSH 04/02/18 20:45 (NS Flush) 2 ml BID IV FLUSH 04/02/18 21:00 04/07/18 07:56 (Eliquis) 5 mg BID PO 04/02/18 21:00 Future Hold 04/05/18 08:55 (Lipitor) 40 mg DAILY PO 04/03/18 09:00 04/07/18 07:55 (KCl) 10 meq DAILY PO 04/04/18 09:00 04/07/18 07:55 (Tylenol) 650 mg Q4H PRN PO 04/04/18 10:30 (Zofran Odt) 4 mg Q6H PRN PO 04/04/18 10:45 (Mimi-Colace) 1 tab BID PRN PO 04/04/18 10:30 (Restoril) 15 mg HS PRN PO 04/04/18 10:30 04/06/18 22:14 (Lasix Inj) 40 mg DAILY IV PUSH 04/05/18 09:00 04/07/18 07:57 (Aspirin Chew) 81 mg DAILY CHEW 04/05/18 09:00 04/07/18 07:56 (Mucinex Er) 600 mg BID PO 04/04/18 21:00 04/07/18 07:56 (Levaquin) 500 mg DAILY PO 04/06/18 09:00 04/07/18 07:55 (Lopressor) 50 mg Q6HR PO 04/07/18 12:00 04/07/18 11:25 Vital Signs / I&O Vital Signs Date Time Temp Pulse Resp B/P (MAP) Pulse Ox O2 Delivery O2 Flow Rate FiO2 04/07/18 12:00 86 04/07/18 08:00 112 04/07/18 07:03 Room Air 04/07/18 04:00 97.1 100 20 120/68 (85) 91 04/07/18 04:00 108 04/07/18 04:00 Room Air 04/07/18 00:00 Room Air 04/07/18 00:00 97.2 91 20 113/83 (93) 92 04/07/18 00:00 92 04/06/18 20:00 97.8 87 20 129/108 (115) 92 04/06/18 20:00 Room Air 04/06/18 20:00 108 04/06/18 16:00 97.4 85 20 120/92 (101) 92 I/O 04/06/18 04/06/18 04/06/18 04/07/18 04/07/18 04/07/18 07:00 15:00 23:00 07:00 15:00 23:00 Intake Total 180 ml 480 ml 342 ml Output Total 250 ml 575 ml Balance -70 ml -95 ml 342 ml Intake Oral 180 ml 480 ml 342 ml Output Urine Total 250 ml 575 ml # Voids 2 4 # Bowel Movements 2 0 Physical Exam GENERAL: NAD, AAOx3 SKIN: Warm and dry. HEAD: Atraumatic. Normocephalic. EYES: Pupils equal and round. No scleral icterus. No injection or drainage. ENT: No nasal bleeding or discharge. Mucous membranes pink and moist. NECK: Trachea midline. No JVD. CARDIOVASCULAR: Irregularly irregular RESPIRATORY: No accessory muscle use. CTA B/L GASTROINTESTINAL: Abdomen soft, non-tender, nondistended. Hepatic and splenic margins not palpable. MUSCULOSKELETAL: Extremities without clubbing, cyanosis. 1+ pitting edema bilaterally. No obvious deformities. NEUROLOGICAL: Awake and alert. No obvious cranial nerve deficits. Motor grossly within normal limits. Five out of 5 muscle strength in the arms and legs. Normal speech. PSYCHIATRIC: Appropriate mood and affect; insight and judgment normal. Laboratory Laboratory Tests Test 04/07/18 06:45 White Blood Count 8.2 TH/MM3 Red Blood Count 6.26 MIL/MM3 Hemoglobin 18.1 GM/DL Hematocrit 54.3 % Mean Corpuscular Volume 86.8 FL Mean Corpuscular Hemoglobin 29.0 PG Mean Corpuscular Hemoglobin Concent 33.4 % Red Cell Distribution Width 13.8 % Platelet Count 211 TH/MM3 Mean Platelet Volume 10.4 FL Neutrophils (%) (Auto) 56.5 % Lymphocytes (%) (Auto) 31.5 % Monocytes (%) (Auto) 8.2 % Eosinophils (%) (Auto) 2.9 % Basophils (%) (Auto) 0.9 % Neutrophils # (Auto) 4.6 TH/MM3 Lymphocytes # (Auto) 2.6 TH/MM3 Monocytes # (Auto) 0.7 TH/MM3 Eosinophils # (Auto) 0.2 TH/MM3 Basophils # (Auto) 0.1 TH/MM3 CBC Comment DIFF FINAL Differential Comment Blood Urea Nitrogen 22 MG/DL Creatinine 1.32 MG/DL Random Glucose 88 MG/DL Calcium Level 8.6 MG/DL Magnesium Level 1.6 MG/DL Sodium Level 140 MEQ/L Potassium Level 3.8 MEQ/L Chloride Level 107 MEQ/L Carbon Dioxide Level 21.1 MEQ/L Anion Gap 12 MEQ/L Estimat Glomerular Filtration Rate 57 ML/MIN Assessment and Plan Problem List: (1) Atrial fibrillation with RVR ICD Codes: I48.91 - Unspecified atrial fibrillation Status: Acute (2) CHF (congestive heart failure) ICD Codes: I50.9 - Heart failure, unspecified Status: Acute (3) Pneumonia ICD Codes: J18.9 - Pneumonia, unspecified organism Status: Acute Assessment and Plan 1) Afib with RVR Heart rates still elevated mildly Increased BB, if stable this afternoon possible discharge Change to Toprol XL 200mg on discharge CHADSVASC = 2, Eliquis 5mg BID Restart 2) Acute decompensated failure, elevated LV pressures Diuresed well, clinically better I/O not recorded well NICM EF 30-35% on echo Possible tachyarrhythmic No MARLEN-I, ARB or Entresto yet Start on Lisinopril 5mg on discharge BMP with PCP in 2 weeks Will consider Entresto outpt 3) Chest pain Most likely due to acute heart failure with elevate LVEDP Mild CAD 4) HIGINIO on CPAP Should have levels rechecked outpt 5) Tobacco abuse Plans on quitting 6) Decrease NSAID use Problem Qualifiers (1) CHF (congestive heart failure): Qualified Codes: I50.9 - Heart failure, unspecified (2) Pneumonia: Qualified Codes: J18.9 - Pneumonia, unspecified organism Darrel Zimmerman DO Apr 07, 2018 12:47
[2018-04-07 16:00] VITALS: BP 126/96; PULSE 105; PULSE 93; RESP 20; TEMP 97.5; O2SAT 94
[2018-04-07 20:00] VITALS: BP 98/68; PULSE 86; PULSE 89; RESP 20; TEMP 97.4; O2SAT 94
[2018-04-07] MEDS: APIXABAN 5 MG TABLET PO SCH (20:27)
[2018-04-07] MEDS: TEMAZEPAM 15 MG CAP PO PRN (20:29)
[2018-04-08] VITALS: PULSE 81
[2018-04-08] MEDS: METOPROLOL TARTRATE 50 MG TAB PO SCH ×4 (00:03→17:55)
[2018-04-08 04:00] VITALS: PULSE 79
[2018-04-08 07:50] LABS: AUTOMATED NEUTROPHIL # 4.3 TH/MM3 (1.8-7.7); BASOPHIL # 0.1 TH/MM3 (0-0.2); BASOPHIL % 0.8 % (0.0-2.0); EOSINOPHIL # 0.2 TH/MM3 (0-0.4); EOSINOPHIL % 3.1 % (0.0-4.0); HEMOGLOBIN 18.3 GM/DL (13.0-17.0); LYMPH % 30.4 % (9.0-44.0); LYMPHOCYTE # 2.4 TH/MM3 (1.0-4.8); MEAN CELL VOLUME 86.9 FL (80.0-100.0); MEAN CORPUSCULAR HEMOGLOBIN 29.5 PG (27.0-34.0); MEAN PLATELET VOLUME 10.5 FL (7.0-11.0); MONO % 10.3 % (0.0-8.0); MONOCYTE # 0.8 TH/MM3 (0-0.9); NEUT % 55.4 % (16.0-70.0); PLATELET COUNT 201 TH/MM3 (150-450); RED BLOOD COUNT 6.21 MIL/MM3 (4.50-5.90); RED CELL DISTRIBUTION WIDTH 13.8 % (11.6-17.2); WHITE BLOOD COUNT 7.8 TH/MM3 (4.0-11.0)
[2018-04-08 08:00] VITALS: BP_SYST 116; BP_SYST 138; BP_DIAS 76; BP_DIAS 85; PULSE 101; PULSE 87; PULSE 96; RESP 16; RESP 20; TEMP 97.1; TEMP 97.9; O2SAT 94; O2SAT 98
[2018-04-08 08:34] LABS: BICARBONATE 21.8 MEQ/L (21.0-32.0); CREATININE 1.33 MG/DL (0.60-1.30)
[2018-04-08] MEDS: ASPIRIN 81 MG CHEW TAB CHEW SCH (08:52)
[2018-04-08] MEDS: POTASSIUM CHLORIDE 10 MEQ CONTROLLED RELEASE TAB PO SCH (08:52)
[2018-04-08] MEDS: APIXABAN 5 MG TABLET PO SCH (08:53)
[2018-04-08] MEDS: guaiFENesin E.R. 600 MG TAB PO SCH (08:53)
[2018-04-08] MEDS: LEVOFLOXACIN 500 MG TAB PO SCH (08:53)
[2018-04-08] MEDS: FUROSEMIDE 40 MG/4 ML VIAL IV PUSH SCH (08:54)
[2018-04-08] MEDS: SODIUM CHLORIDE 0.9% FLUSH 10 ML FLUSH IV FLUSH SCH (08:54)
[2018-04-08] MEDS: ATORVASTATIN 40 MG TAB PO SCH (10:23)
[2018-04-08 12:00] VITALS: BP 128/90; PULSE 100; PULSE 101; RESP 20; TEMP 97.3; O2SAT 97
[2018-04-08] MEDS ORDERED: FLUMAZENIL 0.5 MG/5 ML VIAL ONE (14:00)
--- NOTE | 2018-04-08 14:16 | HHI.PR ---
Subjective Remarks Was able to ambulate. No shortness of breath no chest pain. Still tachycardic. Seen by cardiology decided for transesophageal echo and ablation later today. Patient says he has a very good urine output. Fever chills no nausea or vomiting. Not coughing much. Objective Vitals Vital Signs Date Time Temp Pulse Resp B/P (MAP) Pulse Ox O2 Delivery O2 Flow Rate FiO2 04/08/18 12:00 97.3 100 20 128/90 (103) 97 04/08/18 08:00 87 04/08/18 08:00 97.1 101 20 116/85 (95) 94 04/08/18 07:00 Room Air 04/08/18 04:00 Room Air 04/08/18 04:00 79 04/08/18 00:00 Room Air 04/08/18 00:00 81 04/07/18 20:00 Room Air 04/07/18 20:00 97.4 86 20 98/68 (78) 94 04/07/18 20:00 89 04/07/18 16:00 97.5 93 20 126/96 (106) 94 04/07/18 16:00 105 I/O 04/07/18 04/07/18 04/07/18 04/08/18 04/08/18 04/08/18 07:00 15:00 23:00 07:00 15:00 23:00 Intake Total 342 ml 240 ml Output Total 1600 ml Balance 342 ml -1360 ml Intake Oral 342 ml 240 ml Output Urine Total 1600 ml # Voids 4 2 # Bowel Movements 0 1 0 Result Diagram: 04/08/18 0647 04/08/18 0647 Imaging Last Impressions Myocardial Perfusion Scan Nuc Med 04/04/18 0000 Signed Impressions: CONCLUSION: 1. No reversible perfusion defects are identified to suggest stress-induced my ocardial ischemia. 2. Ejection fraction of 32% Chest X-Ray 04/02/18 1634 Signed Impressions: CONCLUSION: Slight CHF and mild focal consolidation right middle lobe is also s uspected. There is no appreciable change. CT Angiography 04/02/18 0000 Signed Impressions: CONCLUSION: 1. Examination is significantly degraded by respiratory motion artifact. No PE is identified through the lobar and some of the segmental level pulmonary marco eddy. More distal PE cannot be confidently excluded based on this examination. 2. There are interstitial opacities and groundglass opacity bilaterally, great er in the lower lung zones in a pattern suggesting pulmonary edema. Small to mo derate-sized bilateral pleural effusions are present. Objective Remarks GENERAL: 52 yo male, well nourished well developed male patient, appears in NAD CARDIOVASCULAR: Irregular regular rate and rhythm without murmurs, gallops, or rubs. RESPIRATORY: Breath sounds equal bilaterally. No accessory muscle use. GASTROINTESTINAL: Abdomen soft, non-tender, nondistended. MUSCULOSKELETAL: No cyanosis, or edema. BACK: Nontender without obvious deformity. No CVA tenderness. Procedures None A/P Problem List: (1) Atrial fibrillation with RVR ICD Code: I48.91 - Unspecified atrial fibrillation Status: Acute Assessment and Plan 52-year-old man with Atrial fibrillation with RVR: Appreciate input from cardiology Awaiting for second prior nuclear stress test today April 05, 2018 continue metoprolol. Anticoagulation with Eliquis 2D echocardiogram reviewed EF of 30-35% ALESSIO and ablation on 04/08/18 Community-acquired pneumonia Currently on Levaquin supplemental oxygen as needed. Hyperlipidemia- Continue statin. Probable systolic CHF EF of 30-35% Nonischemic cardiomyopathy prob 2/2 long standing ?Afib 2D echocardiogram EF of 30- 35% Continue with Lasix Stress test reviewed with fixed defect, EF 32% S/p cardiac cath by Dr Aragon appreciate recs. Nonischemic cardiomyopathy likely 2/2 long standing Afib Acute kidney injury: Secondary to diuresis. Monitor BUN and creatinine, and avoid all nephrotoxic drug Obstructive sleep apnea Continue with BiPAP at night Tobacco cessation strongly advised DVT prophylaxis: Eliquis. DC when improved. Plan for ALESSIO and ablation 04/08. Poss DC later today or tomorrow. Mary Johnson MD Apr 08, 2018 14:16
[2018-04-08 16:00] VITALS: BP 127/86; PULSE 60; RESP 18; TEMP 97.3; O2SAT 95
--- NOTE | 2018-04-08 16:35 | PD.CARD.PN ---
Subjective Subjective Remarks No events overnight SOB better overall Heart rates still elevated this morning s/p ALESSIO with cardioversion, now sinus rhythm Feels well, no complaints Objective Medications Current Medications Medications (Trade) Dose Ordered Sig/Nichelle Route Start Time Stop Time Status Last Admin (NS Flush) 2 ml UNSCH PRN IV FLUSH 04/02/18 20:45 (NS Flush) 2 ml BID IV FLUSH 04/02/18 21:00 04/08/18 08:54 (Eliquis) 5 mg BID PO 04/02/18 21:00 Future hold 04/08/18 08:53 (Lipitor) 40 mg DAILY PO 04/03/18 09:00 04/08/18 10:23 (KCl) 10 meq DAILY PO 04/04/18 09:00 04/08/18 08:52 (Tylenol) 650 mg Q4H PRN PO 04/04/18 10:30 (Zofran Odt) 4 mg Q6H PRN PO 04/04/18 10:45 (Mimi-Colace) 1 tab BID PRN PO 04/04/18 10:30 (Restoril) 15 mg HS PRN PO 04/04/18 10:30 04/07/18 20:29 (Lasix Inj) 40 mg DAILY IV PUSH 04/05/18 09:00 04/08/18 08:54 (Aspirin Chew) 81 mg DAILY CHEW 04/05/18 09:00 04/08/18 08:52 (Mucinex Er) 600 mg BID PO 04/04/18 21:00 04/08/18 08:53 (Levaquin) 500 mg DAILY PO 04/06/18 09:00 04/08/18 08:53 (Lopressor) 50 mg Q6HR PO 04/07/18 12:00 04/08/18 11:45 Vital Signs / I&O Vital Signs Date Time Temp Pulse Resp B/P (MAP) Pulse Ox O2 Delivery O2 Flow Rate FiO2 04/08/18 12:00 97.3 100 20 128/90 (103) 97 04/08/18 08:00 87 04/08/18 08:00 97.1 101 20 116/85 (95) 94 04/08/18 07:00 Room Air 04/08/18 04:00 Room Air 04/08/18 04:00 79 04/08/18 00:00 Room Air 04/08/18 00:00 81 04/07/18 20:00 Room Air 04/07/18 20:00 97.4 86 20 98/68 (78) 94 04/07/18 20:00 89 I/O 04/07/18 04/07/18 04/07/18 04/08/18 04/08/18 04/08/18 07:00 15:00 23:00 07:00 15:00 23:00 Intake Total 342 ml 240 ml Output Total 1600 ml Balance 342 ml -1360 ml Intake Oral 342 ml 240 ml Output Urine Total 1600 ml # Voids 4 2 # Bowel Movements 0 1 0 Physical Exam GENERAL: NAD, AAOx3 SKIN: Warm and dry. HEAD: Atraumatic. Normocephalic. EYES: Pupils equal and round. No scleral icterus. No injection or drainage. ENT: No nasal bleeding or discharge. Mucous membranes pink and moist. NECK: Trachea midline. No JVD. CARDIOVASCULAR: RRR +S1S2 RESPIRATORY: No accessory muscle use. CTA B/L GASTROINTESTINAL: Abdomen soft, non-tender, nondistended. Hepatic and splenic margins not palpable. MUSCULOSKELETAL: Extremities without clubbing, cyanosis. 1+ pitting edema bilaterally. No obvious deformities. NEUROLOGICAL: Awake and alert. No obvious cranial nerve deficits. Motor grossly within normal limits. Five out of 5 muscle strength in the arms and legs. Normal speech. PSYCHIATRIC: Appropriate mood and affect; insight and judgment normal. Laboratory Laboratory Tests Test 04/08/18 06:47 White Blood Count 7.8 TH/MM3 Red Blood Count 6.21 MIL/MM3 Hemoglobin 18.3 GM/DL Hematocrit 54.0 % Mean Corpuscular Volume 86.9 FL Mean Corpuscular Hemoglobin 29.5 PG Mean Corpuscular Hemoglobin Concent 34.0 % Red Cell Distribution Width 13.8 % Platelet Count 201 TH/MM3 Mean Platelet Volume 10.5 FL Neutrophils (%) (Auto) 55.4 % Lymphocytes (%) (Auto) 30.4 % Monocytes (%) (Auto) 10.3 % Eosinophils (%) (Auto) 3.1 % Basophils (%) (Auto) 0.8 % Neutrophils # (Auto) 4.3 TH/MM3 Lymphocytes # (Auto) 2.4 TH/MM3 Monocytes # (Auto) 0.8 TH/MM3 Eosinophils # (Auto) 0.2 TH/MM3 Basophils # (Auto) 0.1 TH/MM3 CBC Comment DIFF FINAL Differential Comment Blood Urea Nitrogen 20 MG/DL Creatinine 1.33 MG/DL Random Glucose 82 MG/DL Calcium Level 9.0 MG/DL Sodium Level 140 MEQ/L Potassium Level 3.9 MEQ/L Chloride Level 106 MEQ/L Carbon Dioxide Level 21.8 MEQ/L Anion Gap 12 MEQ/L Estimat Glomerular Filtration Rate 57 ML/MIN Assessment and Plan Problem List: (1) Atrial fibrillation with RVR ICD Codes: I48.91 - Unspecified atrial fibrillation Status: Acute (2) CHF (congestive heart failure) ICD Codes: I50.9 - Heart failure, unspecified Status: Acute (3) Pneumonia ICD Codes: J18.9 - Pneumonia, unspecified organism Status: Acute Assessment and Plan 1) Afib with RVR Now sinus rhythm after ALESSIO/CV Change to Toprol XL 200mg on discharge CHADSVASC = 2, Eliquis 5mg BID Restarted 2) Acute decompensated failure, elevated LV pressures Diuresed well, clinically better I/O not recorded well NICM EF 30-35% on echo Possible tachyarrhythmic No MARLEN-I, ARB or Entresto yet Start on Lisinopril 5mg on discharge BMP with PCP in 2 weeks Will consider Entresto outpt 3) Chest pain Most likely due to acute heart failure with elevate LVEDP Mild CAD 4) HIGINIO on CPAP Should have levels rechecked outpt 5) Tobacco abuse Plans on quitting 6) Decrease NSAID use 7) Cardiovascularly stable for discharge Follow up with me in the office Problem Qualifiers (1) CHF (congestive heart failure): Qualified Codes: I50.9 - Heart failure, unspecified (2) Pneumonia: Qualified Codes: J18.9 - Pneumonia, unspecified organism Darrel Zimmerman DO Apr 08, 2018 16:35
[2018-04-08] MEDS ORDERED: APIXABAN 5 MG TABLET PO ONE (17:30)
[2018-04-08] MEDS ORDERED: LISI-519 PO (18:27)
--- NOTE | 2018-04-08 23:55 | PD.CARD ---
Cardiology Procedure Note Procedure Name: Cardioversion Procedure Date: Apr 08, 2018 Procedure Note: Risks and benefits discussed with patient and consent obtained before ALESSIO The appropriate time-out procedure was performed including proper identification of the patient, physician, procedure, documentation, and there were no safety issues identified. After sedation and ALESSIO was finished, the patient was placed in the supine position and hands free patches were placed on his chest in the AP position. Synchronized cardioversion was done multiple times at increasing doses, until the patient converted at 360J. Repeat EKG confirms return to sinus rhythm. Complications: The patient tolerated the procedure well without complications. He will return to his room, and when anesthesia has worn off and if he's stable , he will be discharged home later today. Darrel Zimmerman DO Apr 08, 2018 23:55
--- NOTE | 2018-04-09 00:01 | ECHRPT ---
Indication: PRE CARDIOVERSION CONCLUSIONS The left ventricular systolic function is severely reduced with an estimated ejection fraction in th e range of 30-35%. There is global left ventricular dysfunction. Normal left atrial appendage size with no evidence of thrombus formation. Moderate mitral valve regurgitation. There is mild tricuspid valve regurgitation. BP: / HR: Rhythm: Atrial fibrillation Technical Quality:Good Medications Complications None Proc. Components Anesthesia at the bedside for sedation FINDINGS LEFT VENTRICLE Normal left ventricular size. The left ventricular systolic function is severely reduced with an estimated ejection fraction in th e range of 30-35%. There is global left ventricular dysfunction. RIGHT VENTRICLE The right ventricular systoilc function is mildly decreased. LEFT ATRIUM The left atrial size is upper limits of normal. RIGHT ATRIUM The right atrial size is normal. ATRIAL APPENDAGES Normal left atrial appendage size with no evidence of thrombus formation. There is no spontaneous echo contrast seen in the left atrial appendage. ATRIAL SEPTUM Normal atrial septal thickness. No atrial level shunt is demonstrated by color flow Doppler or agitated saline imaging. AORTA Descending aorto with no evidence of dissection MITRAL VALVE Mild thickening of the mitral valve leaflets. Moderate mitral valve regurgitation. No mitral valve stenosis. AORTIC VALVE Trileaflet aortic valve. No aortic valve stenosis or regurgitation. TRICUSPID VALVE Structurally normal tricuspid valve. There is mild tricuspid valve regurgitation. No tricuspid valve stenosis. VESSELS The pulmonary valve is not well visualized. PERICADIUM No pericardial effusion. Darrel Zimmerman DO (Electronically Signed) Final Date:09 April 2018 00:00
[2018-04-09] MEDS ORDERED: APIXABAN 5 MG TABLET PO SCH (09:00)
--- NOTE | 2018-04-09 18:45 | EKG ---
Date Performed: 04/08/2018 Time Performed: 12:12:40 PTAGE: 52 years EKG: Atrial fibrillation with rapid ventricular response. Ant/septal and lateral T wave changes are nonspecific when compared to prior EKG, the patient's heart rate has improved Abnormal ECG PREVIOUS TRACING : 04/02/2018 16.02 DOCTOR: Sona Urrutia Interpretating Date/Time 04/09/2018 18:44:35
--- NOTE | 2018-04-09 18:47 | EKG ---
Date Performed: 04/08/2018 Time Performed: 14:59:08 PTAGE: 52 years EKG: Sinus bradycardia. Consider left atrial abnormality Possible anterior infarct - age undeter mined Lateral T wave changes may be due to myocardial ischemia when compared to prior EKG, patient's is now in sinus bradycardia Abnormal ECG PREVIOUS TRACING : 04/08/2018 12.12 DOCTOR: Sona Urrutia Interpretating Date/Time 04/09/2018 18:45:24
== END 2018-04-08 19:00 | disposition home or self-care (01) | DRG 286 ==
LOC: NEPC 15:52 → NEDA 19:48 → UNDOADMIN 19:48 → NEDA 20:37 → INTOOBSV 20:37 → NEPFCDU 21:23 → OBSVTOIN 04-03 12:33 → N04A 04-03 22:12
PROVIDERS: ADMIT Hospitalist; ATTEND Hospitalist
PROC: 5A09457 Assistance with Respiratory Ventilation, 24-96 Consecutive Hours, Continuous Positive Airway Pressure (ICD-10-PCS; 2018-04-03)
PROC: B2111ZZ Fluoroscopy of Multiple Coronary Arteries using Low Osmolar Contrast (ICD-10-PCS; 2018-04-06)
PROC: 4A023N8 Measurement of Cardiac Sampling and Pressure, Bilateral, Percutaneous Approach (ICD-10-PCS; principal; 2018-04-06 07:45)
PROC: 5A2204Z Restoration of Cardiac Rhythm, Single (ICD-10-PCS; 2018-04-08)
DX: I48.0 Paroxysmal atrial fibrillation (principal); J18.9 Pneumonia, unspecified organism; I50.21 Acute systolic (congestive) heart failure; N17.9 Acute kidney failure, unspecified; I42.9 Cardiomyopathy, unspecified; I27.20 Pulmonary hypertension, unspecified; Z68.41 Body mass index [BMI] 40.0-44.9, adult; I48.1 Persistent atrial fibrillation; F12.90 Cannabis use, unspecified, uncomplicated; Z88.0 Allergy status to penicillin; E78.5 Hyperlipidemia, unspecified; F17.200 Nicotine dependence, unspecified, uncomplicated; E66.9 Obesity, unspecified; G47.33 Obstructive sleep apnea (adult) (pediatric); I25.10 Atherosclerotic heart disease of native coronary artery without angina pectoris; R07.89 Other chest pain
CPT/HCPCS: 71045; 71046; 71275; 78452; 80048; 80053; 82550; 82552; 82810; 83735; 83880; 84443; 84484; 85002; 85025; 85027; 85347; 85610; 85730; 92960; 93005; 93017; 93306; 93312; 93320; 93325; 93460; 94002; 96374; 96375; A9502; C1769; C1893; J0456; J0696; J1644; J1940; J1956; J2250; J2785; J3010; J7050; Q9967